=== PATIENT | male | born 1950 | race Caucasian/White ===

== ENCOUNTER 2017-07-12 11:56 | Inpatient (IN) ==
--- OUTSIDE RECORDS SUMMARY | 2017-07-12 12:13 | External Medical Summary | Summary of Care ---
:1950 Author Name Enzo Law M.D. Address [address] [place], [place] [id number] Care Team Providers Name Role Phone Enzo Law M.D. Unavailable Unavailable Nestor Law Unavailable Functional Status Functional Status Health Issues Name Dates Details Functional status health issues are not documented Status: Cognitive Status Health Issues Name Dates Details Cognitive status health issues are not documented Status: Problems Name Dates Details Bipolar I disorder, single manic episode (296.00, F30.9) Status: Active Medications Name Dates Details Medication not documented Allergies and Adverse Reactions Name Dates Details Penicillins (Allergy) Status: Active Sulfa Drugs (Allergy) Status: Active Procedures Procedure Dates Details CBC w/ Auto Diff 7150 Ordered: Comprehensive Metabolic Panel 1212 Ordered: LIPID PROFILE 1184 Ordered: THYROID STIM. HORMONE 3602 Ordered: FOLATE 3608 Ordered: VITAMIN B12 3606 Ordered: Immunization Name Dates Details Immunizations not documented Social History Smoking Status Name Dates Details Unknown if ever smoked Vital Signs Date Test Result Details 09:23 BP Systolic 112 mm[Hg] Status: Comments: Location: ; Position: BP Diastolic 72 mm[Hg] Status: Comments: Location: ; Position: Heart Rate 73 /min Status: Comments: Location: ; Height 68 in Status: Weight 176 lb Status: Physical Findings 98 Status: Comments: O2 Saturation Body Mass Index Calculated 26.76 kg/m2 Status: Body Surface Area Calculated 1.94 m2 Status: Results Date Description Value Details Results not documented Plan of Care Name Dates Details Planned Observations CBC w/ Auto Diff 7150 On Intent Comprehensive Metabolic Panel 1212 On Intent LIPID PROFILE 1184 On Intent THYROID STIM. HORMONE 3602 On Intent FOLATE 3608 On Intent VITAMIN B12 3606 On Intent Planned Goals not documented Planned Encounters Appointment; Provider: Nestor Law M.D. On 10:00 Instructions Name Dates Details Instructions not documented Encounters Appointment; Nestor Law M.D. On Encounter Diagnosis: Problem not documented 09:30
--- NOTE | 2017-07-12 12:33 | Emergency Department Report ---
Medical Clearance HPI - General Chief complaint: Medical Clearance Stated complaint: [facility] Time Seen by Provider: 07/12/17 12:08 Source: patient Mode of arrival: ambulatory Limitations: no limitations - History of Present Illness HPI Narrative: He presents to ER today for medical clearance. He has been having trouble with paranoia and had tried to elope. He comes from a fdc in [place]. Has had some changes in his medications recently but they were not seeing good response. He is alert and oriented during exam to person, place, and time but does smile and laugh at nothing and states that he is laughing about a memory that he has had. complaint: medical clearance requested Reason for Medical Clearance: psychiatric condition Place: home Alleged Intoxication: No Compliant with Home Medications: Yes Traumatic Symptoms: denies traumatic injury Associated Symptoms: confusion Treatments Prior to Arrival: none Home medications: Home Medications Medication Instructions Recorded Confirmed Acetaminophen 650 mg PO Q4H PRN 07/12/17 07/12/17 Guaifenesin [Mucinex] 200 mg PO TID PRN 07/12/17 07/12/17 Haloperidol [Haldol] 0.5 mg PO DAILY PRN 07/12/17 07/12/17 LORazepam [Ativan] 0.5 mg PO Q4H PRN 07/12/17 07/12/17 Mag Hydrox/Aluminum Hyd/Simeth 15 ml PO Q6H PRN 07/12/17 07/12/17 [Maalox Advanced Suspension] Magnesium Hydroxide [Milk of 30 ml PO DAILY PRN 07/12/17 07/12/17 Magnesia] OLANZapine [Zyprexa] 5 mg PO HS 07/12/17 07/12/17 OXcarbazepine [Trileptal] 150 mg PO BID 07/12/17 07/12/17 Pramipexole [Mirapex] 1 mg PO TID 07/12/17 07/12/17 Allergies/Adverse reactions: Allergies Allergy/AdvReac Type Severity Reaction Status Date / Time Penicillins Allergy Verified 07/12/17 12:26 Sulfa (Sulfonamide Allergy Verified 07/12/17 12:26 Antibiotics) Review of Systems Constitutional: Denies: fever, chills, weakness ENT: Denies: ear pain, throat pain, congestion Cardiovascular: Denies: chest pain, palpitations, dyspnea on exertion, edema Respiratory: Denies: cough, dyspnea, wheezes Gastrointestinal: Denies: abdominal pain, nausea, vomiting, diarrhea Integumentary: Denies: rash Neurological: Denies: headache, weakness, numbness, paresthesias PFSH Patient Stated Medical History Parkinson's Disease Yes Hypertension Yes Other GI Yes: "gallbladder problems" Bipolar Disorder Yes Schizophrenia Yes: schizo-affective Other Behavioral Health Yes: major neuro-cognitive disorder with behavioral disturbance Bipolar Disorder Schizoaffective disorder major neuro-cognitive disorder with behavioral disturbance HTN edema - Social History Smoking status: Never smoker Substance use type: does not use Alcohol intake frequency: does not drink Physical Exam - Limitations Limitations: no limitations - General General appearance: alert, in no apparent distress - Normal Exams: Neck:: Full range of motion, without adenopathy, JVD, bruits or thyromegaly Chest/Respirations:: Clear all renee, with good airflow, and symmetry bilaterally Cardiovascular:: Regular rate and rhythm, without murmur or gallop, Pulses 2+ all extremities, capillary refill, <2 seconds all extremities Abdomen:: Bowel sounds positive, soft, non-tender, non-distended, no hepatosplenomegaly, masses or bruits noted Lymphatic:: No lymphadenopathy, or lymphedema noted Integumentary:: No rashes, hives, or bruising noted Neurological:: Patient is alert, and oriented Psychiatric:: Patient exhibits, appropriate attention, emotion and affect Course Vital Signs Temperature 97.1 F 07/12/17 12:07 Pulse Rate 82 07/12/17 12:07 Respiratory Rate 16 07/12/17 12:07 Blood Pressure 160/78 H 07/12/17 12:07 Pulse Oximetry 96 07/12/17 12:07 Temperature 98.0 F 07/12/17 15:02 Pulse Rate 81 07/12/17 15:02 Respiratory Rate 18 07/12/17 15:02 Blood Pressure 159/98 H 07/12/17 15:02 Pulse Oximetry 97 07/12/17 15:02 Medical Clearance - Lab Data Attestation: I reviewed the patient's lab results. Result diagrams: 07/12/17 12:43 07/12/17 12:43 Lab Results 07/12/17 07/12/17 07/12/17 Range/Units 12:43 12:43 13:21 WBC 9.7 (4.5-11.0) T/MM3 RBC 5.38 (4.50-5.90) M/MM3 Hgb 15.6 (13.5-17.5) GM/DL Hct 46.3 (41-53) % MCV 86.1 (80-100) UM3 MCH 29.0 (26-34) UUG MCHC 33.7 (31-37) GM/DL RDW Std Deviation 44.7 (36.9-50.2) FL Plt Count 269 (130-400) T/MM3 MPV 9.4 (9.4-12.4) UM3 Immature Gran % (Auto) 0.2 (0.0-0.5) % Neut % (Auto) 69.2 H (33-66) % Lymph % (Auto) 22.9 L (23-45) % Rhea % (Auto) 5.5 (0-9.0) % Eos % (Auto) 1.7 (0-4) % Baso % (Auto) 0.5 (0-2) % Neut # (Auto) 6.7 (1.8-7.7) T/MM3 Lymph # (Auto) 2.2 (1-4.8) T/MM3 Rhea # (Auto) 0.5 (0-0.8) T/MM3 Eos # (Auto) 0.2 (0-0.5) T/MM3 Baso # (Auto) 0.1 (0-0.2) T/MM3 Abs Immat Gran (auto) 0.02 (0.00-0.03) T/MM3 Turbidity < 20 (0-20) Sodium 143 (134-144) MEQ/L Potassium 4.3 (3.6-5) MEQ/L Chloride 110 H (98-107) MEQ/L Carbon Dioxide 23 (22-30) MEQ/L Anion Gap 10 (5-15) MEQ/L BUN 17.0 (9-20) MG/DL Creatinine 1.0 (0.8-1.5) MG/DL GFR Calculation 74 BUN/Creatinine Ratio 17 (6-26) RATIO Glucose 98 (75-110) MG/DL Calculated Osmolality 277 (261-280) MOSM/KG Calcium 9.6 (8.4-10.2) MG/DL Total Bilirubin 0.20 (0.20-1.30) MG/DL Icterus Index < 2 (0-7) AST 19 (17-59) U/L ALT 28 (21-72) U/L Alkaline Phosphatase 78 (38-126) U/L Total Protein 7.3 (6.3-8.2) G/DL Albumin 4.3 (3.5-5.0) G/DL Globulin 3.0 (2.4-3.6) G/DL Albumin/Globulin Ratio 1.4 (1.1-2.2) RATIO Specimen Hemolysis < 15 (0-25) Ur Collection Type Urine, clean catch Urine Color Yellow (YELLOW) Urine Clarity Clear Urine pH 6.5 (5.0-8.0) Ur Specific [place] 1.015 (1.015-1.025) Urine Protein Negative (NEGATIVE) Urine Glucose (UA) Negative (NEGATIVE) Urine Ketones Negative (NEGATIVE) Urine Occult Blood Negative (NEGATIVE) Urine Nitrate Negative (NEGATIVE) Urine Bilirubin Negative (NEGATIVE) Urine Urobilinogen 0.2 (NORMAL) EU/DL Ur Leukocyte Esterase Negative (NEGATIVE) Urinalysis Comment Microscopic not ind. - Radiology Data Attestation: I reviewed the patient's radiology results. Date of Exam: 07/12/17 Ordering Provider: Flores Hannon APRN Type of Exam(s): XR chest 1V Reason for Exam(s): medical clearance Indication: medical clearance PROCEDURE: XR chest 1V: Encounter: Initial Comparison: None FINDINGS: The lungs are clear. There is no abnormal airspace opacity, pleural effusion or pneumothorax identified. The heart size, pulmonary vasculature and mediastinum are within normal limits. IMPRESSION: No acute cardiopulmonary abnormality. . Disposition Clinical Impression: Paranoia Disposition: 63 To [facility] Condition: Stable Time of Disposition: 13:31 - Seen By: midlevel
--- NOTE | 2017-07-12 12:42 | XRay Report ---
Indication: medical clearance PROCEDURE: XR chest 1V: Encounter: Initial Comparison: None FINDINGS: The lungs are clear. There is no abnormal airspace opacity, pleural effusion or pneumothorax identified. The heart size, pulmonary vasculature and mediastinum are within normal limits. IMPRESSION: No acute cardiopulmonary abnormality. .
[2017-07-12] MEDS ORDERED: HALOPERIDOL 5 MG/ML INJECTION IM PRN (14:43)
[2017-07-12] MEDS ORDERED: GUAIFENESIN 200MG TABLET PO PRN (14:43)
[2017-07-12] MEDS ORDERED: ACETAMINOPHEN 325 MG TABLET PO PRN (14:43)
[2017-07-12] MEDS ORDERED: HALOPERIDOL 0.5 MG TABLET PO PRN (14:43)
[2017-07-12] MEDS ORDERED: LORazepam 0.5 MG TABLET PO PRN (14:43)
[2017-07-12] MEDS ORDERED: MAG-AL + SIM ORAL LIQUID 30ml PO PRN (14:43)
--- NOTE | 2017-07-12 15:10 | History & Physical Report ---
History of Present Illness Date: 07/12/17 Chief complaint: paranoia and increasing elopement tendencies HPI: Patient is a 67 yo male who [facility] following clearance through the ED for increasing paranoia and elopement attempts. Patient reports he is unsure why he is here. He tells me he moved to [place] from [place] in October of 2013. States it is a "long story" as to why he moved to [place] but that he needed to get out of [place]. He denies having any family here. He reports he does have roommate in his half-way in [place]. He is oriented to person, place and time. He is unable to remember who his PCP is, but is able to tell me he has seen Dr. Pop for possible Parkinson's diagnosis. History was taken from patient and ER note. At time of documentation, I have no notes from patient's primary care provider and no family is present. Review of Systems Review of systems: some trouble with "harder breathing over the past few months." Past Medical History Parkinson's HTN Bipolar Disorder Schizoaffective disorder Neuro-cognitive disorder Surgical History: Patient denies h/o any surgeries other than skin biopsies. Reports he had a melanoma removed from the L leg. Family History: Noncontributory Family History Updates: . 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 Nestor Harris Neuro - Dr. Pop Pt reports he is not has no children that he "is aware of." Medications Home Medications Medication Instructions Recorded Confirmed Type Acetaminophen 650 mg PO Q4H PRN 07/12/17 07/12/17 History Guaifenesin [Mucinex] 200 mg PO TID PRN 07/12/17 07/12/17 History Haloperidol [Haldol] 0.5 mg PO DAILY PRN 07/12/17 07/12/17 History LORazepam [Ativan] 0.5 mg PO Q4H PRN 07/12/17 07/12/17 History Mag Hydrox/Aluminum Hyd/Simeth 15 ml PO Q6H PRN 07/12/17 07/12/17 History [Maalox Advanced Suspension] Magnesium Hydroxide [Milk of 30 ml PO DAILY PRN 07/12/17 07/12/17 History Magnesia] OLANZapine [Zyprexa] 5 mg PO HS 07/12/17 07/12/17 History OXcarbazepine [Trileptal] 150 mg PO BID 07/12/17 07/12/17 History Pramipexole [Mirapex] 1 mg PO TID 07/12/17 07/12/17 History Allergies Allergy/AdvReac Type Severity Reaction Status Date / Time Penicillins Allergy Verified 07/12/17 12:26 Sulfa (Sulfonamide Allergy Verified 07/12/17 12:26 Antibiotics) Exam Vital Signs: Temperature 97.1 F 07/12/17 12:07 Pulse Rate 56 L 07/12/17 12:57 Respiratory Rate 16 07/12/17 12:57 Blood Pressure 163/79 H 07/12/17 12:57 Pulse Oximetry 97 07/12/17 12:57 - Constitutional Present: no acute distress, well nourished, well developed - Routine HEENT Exam Head: Present: normocephalic, atraumatic Eye: Present: EOMI ENT: Present: mucous membranes moist, oropharynx clear, dentition normal - Routine Neck Exam Present: supple. Absent: lymphadenopathy, thyromegaly - Routine Respiratory Exam Present: CTA bilaterally. Absent: wheezes - Routine Cardiovascular Exam Present: RRR. Absent: murmur - Routine Abdominal Exam Present: soft, normoactive bowel sounds, non distended. Absent: tenderness - Routine Extremities Exam Present: normal capillary refill - Routine Skin Exam Present: dry, warm - Routine Neurological Exam Present: alert, oriented X3, moving all extremities, normal tone, normal speech , tremors (very minimal - intentional). Absent: pronator drift, abnormal gait CN III-XII intact - Routine Psychiatric Exam Present: normal affect, cooperative Results - Labs CBC & Chem 7: 07/12/17 12:43 07/12/17 12:43 - Imaging and Cardiology Chest x-ray Additional comments: Date of Exam: 07/12/17 Indication: medical clearance PROCEDURE: XR chest 1V: FINDINGS: The lungs are clear. There is no abnormal airspace opacity, pleural effusion or pneumothorax identified. The heart size, pulmonary vasculature and mediastinum are within normal limits. IMPRESSION: No acute cardiopulmonary abnormality. Assessment and Plan (1) Paranoia Current visit: Yes Status: Acute Assessment and Plan: Assessment: Neuro-cognitive disorder with paranoia and elopement attempts Parkinson's HTN Bipolar Disorder Schizoaffective disorder Plan: Agree with [facility] admission for psychiatric eval and tx and to provide a safe environment. Patient appears medically stable. BP's are slightly elevated, will follow. We will continue to follow patient medically throughout his stay. Thank you for the consult. Care to return to Dr. Harris on dismissal. - Physician Narrative Physician: Dionna Cao MD Narrative: Date: 07/12/17 Time: 1809 I have independently evaluated and examined this patient. I reviewed the chart, the patient's history, and the SUPERINTENDENT LOCAL/PA's documented findings as above. 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 He denied any particular concerns when I spoke with him indicating only that he has occasional tremors in his arms due to Parkinson's disease, panting respirations unrelated to exercise, and gallbladder attacks with the most recent episode 3 or 4 days ago. Comprehensive review of systems was generally negative although occasionally if the patient would note that he had a single episode of something (for example one episode of chest pain) 4 or 5 years ago. PCP-Dr. Thanh FELDMAN, alert, fluent speech Respirations nonlabored, good airflow Regular rhythm, S1-S2 EOMI, tongue midline, facial structure symmetric Sensation intact to light touch 4 extremities No tremor time of my evaluation however he does have cogwheeling at the right wrist but none at the left; generalized motor tone was normal as was power Screening labs/UA unremarkable. Lipid studies/B-12/TSH pending. Chest x-ray reviewed by myself-NAD EKG also reviewed by myself-sinus rhythm, LAD, very small Q waves in lateral leads-cannot exclude past lateral event Medically stable although blood pressure slightly elevated at time of admission. Will monitor and make recommendations if persistent. Thank you for allowing us to participate in this gentleman's care. Hospital Course Summary Disclaimer: The visit summary below is not to be considered part of the above Progress Note.
[2017-07-12 15:45] VITALS: BMI 27.6
[2017-07-12] MEDS: PRAMIPEXOLE 1 MG TABLET PO SCH ×3 (17:07→21:41)
[2017-07-12] MEDS: OLANZapine 5 MG TABLET PO SCH ×3 (19:40→21:47)
[2017-07-12] MEDS: OXCARBAZEPINE 150 MG TABLET PO SCH (21:40)
[2017-07-13] MEDS ORDERED: LORazepam INTENSOL 1mg/0.5ml ORAL LIQUID SL PRN (08:10)
[2017-07-13] MEDS: OXCARBAZEPINE 150 MG TABLET PO SCH ×2 (08:13→20:03)
[2017-07-13] MEDS: PRAMIPEXOLE 1 MG TABLET PO SCH ×3 (08:15→17:01)
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
[2017-07-13] MEDS: OLANZapine 5 MG TABLET PO SCH (20:02)
[2017-07-14] MEDS: OXCARBAZEPINE 150 MG TABLET PO SCH (08:57)
[2017-07-14] MEDS: PRAMIPEXOLE 1 MG TABLET PO SCH ×3 (08:57→18:05)
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
[2017-07-14] MEDS ORDERED: HALOPERIDOL 5 MG/ML INJECTION IM PRN (15:06)
[2017-07-14] MEDS: OLANZapine 5 MG TABLET PO SCH (20:10)
[2017-07-15] MEDS: PRAMIPEXOLE 1 MG TABLET PO SCH ×2 (09:46→17:17)
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
[2017-07-15] MEDS: OLANZapine 5 MG TABLET PO SCH ×2 (19:38→21:26)
[2017-07-16] MEDS: PRAMIPEXOLE 1 MG TABLET PO SCH ×2 (08:12→17:03)
--- NOTE | 2017-07-16 10:46 | Neuropsych Progress Note ---
[facility] Subjective Date: 07/16/17 - Sujective/Severity of Illness Medications: Acetaminophen (Tylenol) 650 mg PO Q4H PRN PRN Reason: Pain Al Hydroxide/Mg Hydroxide (Maalox Plus) 15 ml PO Q6H PRN PRN Reason: PRN orders Guaifenesin (Mucinex) 200 mg PO TID PRN PRN Reason: Cough /Congestion Last Admin: 07/14/17 01:55 Dose: 200 mg Haloperidol (Haldol) 0.5 mg PO Q6H PRN PRN Reason: Extreme agitation Haloperidol Lactate (Haldol) 0.5 mg IM Q6H PRN PRN Reason: Extreme agitation Haloperidol Lactate (Haldol) 1 mg IM DAILY PRN PRN Reason: See comments below Last Admin: 07/14/17 19:44 Dose: 1 mg Lorazepam (Ativan) 0.5 mg PO Q6H PRN PRN Reason: Extreme agitation Lorazepam (Ativan Inj) 0.5 mg IM Q6H PRN PRN Reason: Extreme agitation Lorazepam (Ativan Intensol) 0.5 mg SL Q6H PRN PRN Reason: alternative route Last Admin: 07/13/17 08:13 Dose: 0.5 mg Magnesium Hydroxide (Mom) 30 ml PO DAILY PRN PRN Reason: Constipation Subjective: Pt seen and chart examined. Nursing reports pt slept 4.25 hours. He is alert and oriented x 3 but is delusional and sexually inappropriate at times. On face to face the pt is paranoid and delusional. He states he did take the Zyprexa last night and is willing to take it even though he does not want to. he reports his mood is stable and he denies any S/I. Start Time: 09:15 Stop Time: 09:30 Mental Status Exam Vitals: Last Vital Signs Temp 97.7 F 07/16/17 08:00 Pulse 101 H 07/16/17 08:00 Resp 16 07/16/17 08:00 BP 168/90 H 07/16/17 08:00 Pulse Ox 96 07/16/17 08:00 Height: 1.73 m Weight: 82.4 kg - Mental Status Exam Muscle Strength/Tone: Normal Dressing: Casual Grooming: Fair Attitude: Uncooperative, Suspicious Motor Activity: Normal Eye Contact: Poor Speech: Normal Volume: Normal Rhythm: Appropriate Rhythm Orientation: Disoriented to situation, Oriented to person, Oriented to place, Oriented to time Mood: Irritable (mild) Rate of Thoughts: Delayed Thought Organization: Blocking, [place] Associations: Illogical Abstract Reasoning: Impaired, concrete Thought Content: Paranoia, Grandeur, Hypersexual Perception/Psychotic: Psychotic Current Hallucinations: Auditory (non-command) Language: Naming Intact Fund of Knowledge: Other (decreased from baseline, SLUMS upon admission) Memory: Poor-recent Suicidal Ideation: Denies Homicidal Ideation: Denies Insight: Impaired Judgement: Impaired Impulse Control: Poor - Laboratory Result Diagrams: 07/12/17 12:43 07/12/17 12:43 Assessment and Plan (1) Psychosis Qualifiers: Psychosis type: unspecified psychosis type Qualified Code(s): F29 - Unspecified psychosis not due to a substance or known physiological condition Current visit: Yes Status: Acute (2) Major neurocognitive disorder Current visit: Yes Status: Chronic (3) Hypertension Current visit: Yes Status: Acute Hospital Course Summary Disclaimer: The visit summary below is not to be considered part of the above Progress Note. Hospital Course: 07/14/17 Psych: Will discuss the following plan with guardian: Discontinue Trileptal. Plan to taper pramipexole in the event it could be exacerbating psychosis; will decrease to 1mg PO BID for the time being and then 1mg daily the following day. Will also like to restart Zyprexa 5mg PO daily at HS; if patient refuses he will be given Haldol 1mg IM. Will monitor mood, behavior, movement and response to treatment. 07/15/17 Psych: Continue current care; patient received injection in place of scheduled Zyprexa yesterday evening. Seems to be somewhat helpful though still quite symptomatic. Will see if patient will adhere with oral medication tonight. If not, may consider increasing dose of PRN IM Haldol if he refuses. 07/16/17 Pt remains paranoid and sexually inappropriate at times. Will decrease Pramipexole to 0.5mg PO BID and Increase Zyprexa to 10mg PO QHS
[2017-07-16] MEDS: OLANZapine 5 MG TABLET PO SCH (20:00)
[2017-07-17] MEDS: PRAMIPEXOLE 1 MG TABLET PO SCH ×2 (08:16→16:52)
--- NOTE | 2017-07-17 11:59 | Neuropsych Progress Note ---
Louis Subjective Date: 07/17/17 - Sujective/Severity of Illness Medications: Acetaminophen (Tylenol) 650 mg PO Q4H PRN PRN Reason: Pain Al Hydroxide/Mg Hydroxide (Maalox Plus) 15 ml PO Q6H PRN PRN Reason: PRN orders Guaifenesin (Mucinex) 200 mg PO TID PRN PRN Reason: Cough /Congestion Last Admin: 07/14/17 01:55 Dose: 200 mg Haloperidol (Haldol) 0.5 mg PO Q6H PRN PRN Reason: Extreme agitation Haloperidol Lactate (Haldol) 0.5 mg IM Q6H PRN PRN Reason: Extreme agitation Haloperidol Lactate (Haldol) 1 mg IM DAILY PRN PRN Reason: See comments below Last Admin: 07/14/17 19:44 Dose: 1 mg Lisinopril (Prinivil) 5 mg PO DAILY [facility] Lorazepam (Ativan) 0.5 mg PO Q6H PRN PRN Reason: Extreme agitation Lorazepam (Ativan Inj) 0.5 mg IM Q6H PRN PRN Reason: Extreme agitation Lorazepam (Ativan Intensol) 0.5 mg SL Q6H PRN PRN Reason: alternative route Last Admin: 07/13/17 08:13 Dose: 0.5 mg Magnesium Hydroxide (Mom) 30 ml PO DAILY PRN PRN Reason: Constipation Olanzapine (Zyprexa) 10 mg PO HS [facility] Last Admin: 07/16/17 20:00 Dose: 10 mg Pramipexole Dihydrochloride (Mirapex) 0.5 mg PO BIDWM [facility] Last Admin: 07/17/17 08:16 Dose: 0.5 mg Subjective: Pt seen and chart examined. Nursing reports pt doing a little better. Slept well and has a good appetite. No behaviors noted. On face to face the pt is pleasant and cooperative. He remains paranoid and delusional but it appears better. He has a small bruise on his arm which he is convinced is melanoma which is causing him some distress. He reports his mood is stable. Is tolerating and taking PO meds Start Time: 10:45 Stop Time: 11:00 Mental Status Exam Vitals: Last Vital Signs Temp 97.0 F 07/17/17 08:00 Pulse 89 07/17/17 08:00 Resp 18 07/17/17 08:00 BP 159/97 H 07/17/17 08:00 Pulse Ox 97 07/17/17 08:00 Height: 1.73 m Weight: 82.4 kg - Mental Status Exam Muscle Strength/Tone: Normal Dressing: Casual Grooming: Fair Attitude: Uncooperative, Suspicious Motor Activity: Normal Eye Contact: Poor Speech: Normal Volume: Normal Rhythm: Appropriate Rhythm Orientation: Disoriented to situation, Oriented to person, Oriented to place, Oriented to time Mood: Irritable (mild) Rate of Thoughts: Delayed Thought Organization: Blocking, [place] Associations: Illogical Abstract Reasoning: Impaired, concrete Thought Content: Paranoia, [place], Hypersexual Perception/Psychotic: Psychotic Current Hallucinations: Auditory (non-command) Language: Naming Intact Fund of Knowledge: Other (decreased from baseline, SLUMS upon admission) Memory: Poor-recent Suicidal Ideation: Denies Homicidal Ideation: Denies Insight: Impaired Judgement: Impaired Impulse Control: Poor - Laboratory Result Diagrams: 07/12/17 12:43 07/12/17 12:43 Assessment and Plan (1) Psychosis Qualifiers: Psychosis type: unspecified psychosis type Qualified Code(s): F29 - Unspecified psychosis not due to a substance or known physiological condition Current visit: Yes Status: Acute (2) Major neurocognitive disorder Current visit: Yes Status: Chronic (3) Hypertension Current visit: Yes Status: Acute Hospital Course Summary Disclaimer: The visit summary below is not to be considered part of the above Progress Note. Hospital Course: 07/14/17 Psych: Will discuss the following plan with guardian: Discontinue Trileptal. Plan to taper pramipexole in the event it could be exacerbating psychosis; will decrease to 1mg PO BID for the time being and then 1mg daily the following day. Will also like to restart Zyprexa 5mg PO daily at HS; if patient refuses he will be given Haldol 1mg IM. Will monitor mood, behavior, movement and response to treatment. 07/15/17 Psych: Continue current care; patient received injection in place of scheduled Zyprexa yesterday evening. Seems to be somewhat helpful though still quite symptomatic. Will see if patient will adhere with oral medication tonight. If not, may consider increasing dose of PRN IM Haldol if he refuses. 1/6/18 Pt remains paranoid and sexually inappropriate at times. Will decrease Pramipexole to 0.5mg PO BID and Increase Zyprexa to 10mg PO QHS 07/17/17 Paranoid improved. Continue current care
[2017-07-17] MEDS: LISINOPRIL 5 MG TABLET PO SCH (13:12)
[2017-07-17] MEDS: OLANZapine 5 MG TABLET PO SCH (20:11)
[2017-07-18] MEDS: LISINOPRIL 5 MG TABLET PO SCH (08:15)
[2017-07-18] MEDS: PRAMIPEXOLE 1 MG TABLET PO SCH ×2 (08:15→17:56)
--- NOTE | 2017-07-18 14:23 | Neuropsych Progress Note ---
Louis Subjective Date: 07/18/17 - Sujective/Severity of Illness Medications: Acetaminophen (Tylenol) 650 mg PO Q4H PRN PRN Reason: Pain Al Hydroxide/Mg Hydroxide (Maalox Plus) 15 ml PO Q6H PRN PRN Reason: PRN orders Guaifenesin (Mucinex) 200 mg PO TID PRN PRN Reason: Cough /Congestion Last Admin: 07/14/17 01:55 Dose: 200 mg Haloperidol (Haldol) 0.5 mg PO Q6H PRN PRN Reason: Extreme agitation Haloperidol Lactate (Haldol) 0.5 mg IM Q6H PRN PRN Reason: Extreme agitation Haloperidol Lactate (Haldol) 1 mg IM DAILY PRN PRN Reason: See comments below Last Admin: 07/14/17 19:44 Dose: 1 mg Lisinopril (Prinivil) 5 mg PO DAILY [facility] Last Admin: 07/18/17 08:15 Dose: 5 mg Lorazepam (Ativan) 0.5 mg PO Q6H PRN PRN Reason: Extreme agitation Lorazepam (Ativan Inj) 0.5 mg IM Q6H PRN PRN Reason: Extreme agitation Lorazepam (Ativan Intensol) 0.5 mg SL Q6H PRN PRN Reason: alternative route Last Admin: 07/13/17 08:13 Dose: 0.5 mg Magnesium Hydroxide (Mom) 30 ml PO DAILY PRN PRN Reason: Constipation Olanzapine (Zyprexa) 10 mg PO HS [facility] Last Admin: 07/17/17 20:11 Dose: 10 mg Pramipexole Dihydrochloride (Mirapex) 0.5 mg PO BIDWM [facility] Last Admin: 07/18/17 08:15 Dose: 0.5 mg Subjective: Patient seen and chart reviewed. Case discussed with treatment team. Patient states collin this mood is "as stable as possible" but that he feels a little "slow" this morning. When asked why, he states because he hasn't finished a puzzle yet and the SW beat him at a game -- however, he reported he enjoyed playing. SW reported that he did relatively well with this and asked for help when he needed some. He states that he is worried about his finances and has had some thoughts of "suicide by psychiatry." When asked about this, he stated that he could intentionally feign symptoms so I would increase his antipsychotic higher and higher until he . He reported having these thoughts because he is worried about finances and thinks he will probably live another 30 years, which he can't afford. He then said that he did feel safe on the unit. Patient denied any HI. He continues to endorse AH of his niece but now says they are more positive comments, not derogatory or paranoid in nature. He denies any command hallucinations. Nursing staff report some paranoia (decreased from previous) and that patient was concerned last night that a spot on his wrist was cancer. Patient slept only 4 hours, interrupted, last night but the reason for this is not clear as he was previously sleeping better. He was initially hesitant about Zyprexa but took it rather than getting IM medication last night. Hypersexuality present but decreasing. Patient denies any AE due to psychotropic medications today. Movement examined and so parkinsonism apparent. Patient is eating well. VSS. No psychotropic PRNs have been required in the past 24 hours. Start Time: 11:40 Stop Time: 12:00 Mental Status Exam Vitals: Last Vital Signs Temp 97.2 F 07/18/17 08:00 Pulse 92 07/18/17 08:00 Resp 16 07/18/17 08:00 BP 129/90 H 07/18/17 08:00 Pulse Ox 99 07/18/17 08:00 Height: 1.73 m Weight: 82.4 kg - Mental Status Exam Muscle Strength/Tone: Normal Dressing: Casual Grooming: Fair Attitude: Cooperative, Suspicious (mild) Motor Activity: Normal Eye Contact: Poor Speech: Normal Volume: Normal Rhythm: Appropriate Rhythm Orientation: Disoriented to situation, Oriented to person, Oriented to place, Oriented to time Mood: Neutral Affect: Blunted Rate of Thoughts: Delayed Thought Organization: Blocking, [place] Associations: Intact Abstract Reasoning: Impaired, concrete Thought Content: Delusions, Paranoia, Hypersexual, Somatic Concerns Perception/Psychotic: Psychotic Current Hallucinations: Auditory (non-command) Language: Naming Intact Fund of Knowledge: Other (decreased from baseline, SLUMS upon admission) Memory: Poor-recent Suicidal Ideation: Denies Homicidal Ideation: Denies Insight: Impaired Judgement: Impaired Impulse Control: Poor (though improving) - Laboratory Result Diagrams: 07/12/17 12:43 07/18/17 07:04 Laboratory Results - last 24 hr 07/18/17 07:04 Turbidity < 20 Sodium 146 H Potassium 4.4 Chloride 110 H Carbon Dioxide 25 Anion Gap 11 BUN 19.0 Creatinine 1.1 GFR Calculation 66 BUN/Creatinine Ratio 17 Glucose 90 Calculated Osmolality 283 H Calcium 9.9 Icterus Index < 2 Specimen Hemolysis < 15 Assessment and Plan (1) Psychosis Qualifiers: Psychosis type: unspecified psychosis type Qualified Code(s): F29 - Unspecified psychosis not due to a substance or known physiological condition Current visit: Yes Status: Acute Bipolar 1 disorder, severe, MRE manic with psychotic features (2) Major neurocognitive disorder Current visit: Yes Status: Chronic (3) Hypertension Current visit: Yes Status: Acute Continue current care; monitor response to increased Zyprexa. Hospital Course Summary Disclaimer: The visit summary below is not to be considered part of the above Progress Note. Hospital Course: 07/14/17 Psych: Will discuss the following plan with guardian: Discontinue Trileptal. Plan to taper pramipexole in the event it could be exacerbating psychosis; will decrease to 1mg PO BID for the time being and then 1mg daily the following day. Will also like to restart Zyprexa 5mg PO daily at HS; if patient refuses he will be given Haldol 1mg IM. Will monitor mood, behavior, movement and response to treatment. 07/15/17 Psych: Continue current care; patient received injection in place of scheduled Zyprexa yesterday evening. Seems to be somewhat helpful though still quite symptomatic. Will see if patient will adhere with oral medication tonight. If not, may consider increasing dose of PRN IM Haldol if he refuses. 07/16/17 Pt remains paranoid and sexually inappropriate at times. Will decrease Pramipexole to 0.5mg PO BID and Increase Zyprexa to 10mg PO QHS 07/17/17 Paranoia improved. Continue current care. 07/18/17 Psych: Continue current care; monitor response to increased Zyprexa. May need additional medication to target sleep.
--- NOTE | 2017-07-18 17:28 | Progress Note ---
- Date 07/18/17 Subjective: Pat has been jogging up and down the hallway. He's been worried about a spot on his left forearm which he estimates has been there about a week. He denies any chest pain or difficulty breathing. No abdominal pain or GI complaints; his appetite has been stable. Objective Vital signs: Temperature 97.7 F 07/18/17 16:00 Pulse Rate 93 07/18/17 16:00 Respiratory Rate 16 07/18/17 16:00 Blood Pressure 135/79 07/18/17 16:00 Pulse Oximetry 98 07/18/17 16:00 Height/Weight/BMI: Height 1.73 m Weight 82.4 kg Body Mass Index 27.6 - Constitutional Present: no acute distress, well nourished, well developed - Routine HEENT Exam Head: Present: normocephalic Eye: Absent: conjunctival icterus, scleral injection - Routine Respiratory Exam Present: CTA bilaterally - Routine Cardiovascular Exam Present: RRR, S1, S2 - Routine Abdominal Exam Present: soft, normoactive bowel sounds - Routine Extremities Exam Present: no edema, pulses intact - Routine Musculoskeletal Exam Musculoskeletal: Present: moving extremities well - Routine Skin Exam Present: dry, warm, wounds (healing abrasion to left hall), ecchymosis (small 1 cm ecchymotic area to left forearm) - Routine Neurological Exam Present: alert, normal speech - Routine Psychiatric Exam Absent: normal affect, normal thought process Results - Labs CBC & Chem 7: 07/12/17 12:43 07/18/17 07:04 Assessment and Plan (1) Paranoia Current visit: Yes Status: Acute Assessment and Plan: Assessment: Neuro-cognitive disorder with paranoia and elopement attempts Parkinson's HTN Bipolar Disorder Schizoaffective disorder Plan: Labs reviewed - mild hypernatremia; encourage oral fluids. Medically stable. Psych notes reviewed - medications being adjusted. Monitor ecchymotic area to left forearm for changes. - Physician Narrative Narrative: Date: 07/18/17 Time: 172 Hospital Course Summary Disclaimer: The visit summary below is not to be considered part of the above Progress Note. Hospital Course: 07/14/17 Psych: Will discuss the following plan with guardian: Discontinue Trileptal. Plan to taper pramipexole in the event it could be exacerbating psychosis; will decrease to 1mg PO BID for the time being and then 1mg daily the following day. Will also like to restart Zyprexa 5mg PO daily at HS; if patient refuses he will be given Haldol 1mg IM. Will monitor mood, behavior, movement and response to treatment. 07/15/17 Psych: Continue current care; patient received injection in place of scheduled Zyprexa yesterday evening. Seems to be somewhat helpful though still quite symptomatic. Will see if patient will adhere with oral medication tonight. If not, may consider increasing dose of PRN IM Haldol if he refuses. 07/16/17 Pt remains paranoid and sexually inappropriate at times. Will decrease Pramipexole to 0.5mg PO BID and Increase Zyprexa to 10mg PO QHS 07/17/17 Paranoia improved. Continue current care. 07/18/17 Psych: Continue current care; monitor response to increased Zyprexa. May need additional medication to target sleep.
[2017-07-18] MEDS: OLANZapine 5 MG TABLET PO SCH (20:01)
[2017-07-19] MEDS: LISINOPRIL 5 MG TABLET PO SCH (10:27)
[2017-07-19] MEDS: PRAMIPEXOLE 1 MG TABLET PO SCH ×2 (10:27→17:53)
--- NOTE | 2017-07-19 18:20 | Neuropsych Progress Note ---
Louis Subjective Date: 07/20/17 - Sujective/Severity of Illness Medications: Acetaminophen (Tylenol) 650 mg PO Q4H PRN PRN Reason: Pain Al Hydroxide/Mg Hydroxide (Maalox Plus) 15 ml PO Q6H PRN PRN Reason: PRN orders Guaifenesin (Mucinex) 200 mg PO TID PRN PRN Reason: Cough /Congestion Last Admin: 07/14/17 01:55 Dose: 200 mg Haloperidol (Haldol) 0.5 mg PO Q6H PRN PRN Reason: Extreme agitation Haloperidol Lactate (Haldol) 0.5 mg IM Q6H PRN PRN Reason: Extreme agitation Haloperidol Lactate (Haldol) 1 mg IM DAILY PRN PRN Reason: See comments below Last Admin: 07/14/17 19:44 Dose: 1 mg Lisinopril (Prinivil) 5 mg PO DAILY [facility] Last Admin: 07/19/17 10:27 Dose: 5 mg Lorazepam (Ativan) 0.5 mg PO Q6H PRN PRN Reason: Extreme agitation Lorazepam (Ativan Inj) 0.5 mg IM Q6H PRN PRN Reason: Extreme agitation Lorazepam (Ativan Intensol) 0.5 mg SL Q6H PRN PRN Reason: alternative route Last Admin: 07/13/17 08:13 Dose: 0.5 mg Magnesium Hydroxide (Mom) 30 ml PO DAILY PRN PRN Reason: Constipation Olanzapine (Zyprexa) 10 mg PO HS [facility] Last Admin: 07/18/17 20:01 Dose: 10 mg Pramipexole Dihydrochloride (Mirapex) 0.5 mg PO BIDWM [facility] Last Admin: 07/19/17 17:53 Dose: 0.5 mg Subjective: Patient seen and chart reviewed. Case discussed with treatment team. Patient states that his mood is "unhappy" and "a little bit angry" because no one has given him any information about his finances. He states that he feels his guardian may be trying to intentionally harm him financially because she won 't report his information and she has cancelled 4 credit cards. He carries this anger over to this female physician and the female SW "because women always just investigate and never get anything done." Patient denies any SI today. When asked about HI, he speaks of his annoyance with a new male peer (who is really quite pleasant but I believe Rajesh is jealous of another man having experience). He continues to endorse AH of his niece but now says they are more positive comments, not derogatory or paranoid in nature. He denies any command hallucinations. Nursing staff report continued somatic delusions and that patient was observed spitting his medication back into his cup. It is unclear how long he has been doing this. Patient slept 5.75 hours last night. Patient is eating well. VSS. No psychotropic PRNs have been required in the past 24 hours. Start Time: 10:00 Stop Time: 10:20 Mental Status Exam Vitals: Last Vital Signs Temp 97.8 F 07/19/17 15:41 Pulse 81 07/19/17 15:41 Resp 18 07/19/17 15:41 BP 123/65 07/19/17 15:41 Pulse Ox 98 07/19/17 15:41 Height: 1.73 m Weight: 83.2 kg - Mental Status Exam Muscle Strength/Tone: Normal Dressing: Casual Grooming: Fair Attitude: Uncooperative, Suspicious (mild), Argumentative Motor Activity: Normal Eye Contact: Poor Speech: Normal Volume: Normal Rhythm: Appropriate Rhythm Sensory: Alert Orientation: Disoriented to situation, Oriented to person, Oriented to place, Oriented to time Mood: Irritable Affect: Hostile Rate of Thoughts: Delayed Thought Organization: Blocking, [place] Associations: Intact Abstract Reasoning: Impaired, concrete Thought Content: Delusions, Paranoia, Hypersexual, Somatic Concerns Perception/Psychotic: Psychotic Current Hallucinations: Auditory (non-command) Language: Naming Intact Fund of Knowledge: Other (decreased from baseline, SLUMS upon admission) Memory: Poor-recent Suicidal Ideation: Denies Homicidal Ideation: Other (Is easily annoyed with male peer but denies any plans to harm him) Insight: Impaired Judgement: Impaired Impulse Control: Poor (though improving) - Laboratory Result Diagrams: 07/12/17 12:43 07/20/17 07:24 Assessment and Plan (1) Psychosis Qualifiers: Psychosis type: unspecified psychosis type Qualified Code(s): F29 - Unspecified psychosis not due to a substance or known physiological condition Current visit: Yes Status: Acute (2) Major neurocognitive disorder Current visit: Yes Status: Chronic (3) Hypertension Current visit: Yes Status: Acute Have requested nursing to do mouth checks to ensure adherence with Zyprexa. Need to watch closely as patient has attempted to hide multiple items (a butter knife, manicure set) and quite irritable with peers. Hospital Course Summary Disclaimer: The visit summary below is not to be considered part of the above Progress Note. Hospital Course: 07/14/17 Psych: Will discuss the following plan with guardian: Discontinue Trileptal. Plan to taper pramipexole in the event it could be exacerbating psychosis; will decrease to 1mg PO BID for the time being and then 1mg daily the following day. Will also like to restart Zyprexa 5mg PO daily at HS; if patient refuses he will be given Haldol 1mg IM. Will monitor mood, behavior, movement and response to treatment. 07/15/17 Psych: Continue current care; patient received injection in place of scheduled Zyprexa yesterday evening. Seems to be somewhat helpful though still quite symptomatic. Will see if patient will adhere with oral medication tonight. If not, may consider increasing dose of PRN IM Haldol if he refuses. 07/16/17 Pt remains paranoid and sexually inappropriate at times. Will decrease Pramipexole to 0.5mg PO BID and Increase Zyprexa to 10mg PO QHS 07/17/17 Paranoia improved. Continue current care. 07/18/17 Psych: Continue current care; monitor response to increased Zyprexa. May need additional medication to target sleep. 07/19/17 Psych: Have requested nursing to do mouth checks to ensure adherence with Zyprexa. Need to watch closely as patient has attempted to hide multiple items (a butter knife, manicure set) and quite irritable with peers.
[2017-07-19] MEDS: OLANZapine 5 MG TABLET PO SCH (20:27)
[2017-07-19] MEDS: PRAMIPEXOLE 0.25 MG TABLET PO SCH (20:28)
[2017-07-20] MEDS: PRAMIPEXOLE 0.25 MG TABLET PO SCH ×2 (08:16→17:31)
[2017-07-20] MEDS: LISINOPRIL 5 MG TABLET PO SCH (08:16)
[2017-07-20] MEDS ORDERED: HALOPERIDOL 5 MG/ML INJECTION IM PRN (16:30)
[2017-07-20] MEDS: OLANZapine ODT 5 MG TABLET PO SCH (20:41)
--- NOTE | 2017-07-20 21:18 | Neuropsych Progress Note ---
[place] Subjective Date: 07/20/17 - Sujective/Severity of Illness Medications: Acetaminophen (Tylenol) 650 mg PO Q4H PRN PRN Reason: Pain Al Hydroxide/Mg Hydroxide (Maalox Plus) 15 ml PO Q6H PRN PRN Reason: PRN orders Guaifenesin (Mucinex) 200 mg PO TID PRN PRN Reason: Cough /Congestion Last Admin: 07/14/17 01:55 Dose: 200 mg Haloperidol (Haldol) 0.5 mg PO Q6H PRN PRN Reason: Extreme agitation Haloperidol Lactate (Haldol) 0.5 mg IM Q6H PRN PRN Reason: Extreme agitation Haloperidol Lactate (Haldol) 2 mg IM BID PRN PRN Reason: See comments below Lisinopril (Prinivil) 5 mg PO DAILY [facility] Last Admin: 07/20/17 08:16 Dose: 5 mg Lorazepam (Ativan) 0.5 mg PO Q6H PRN PRN Reason: Extreme agitation Lorazepam (Ativan Inj) 0.5 mg IM Q6H PRN PRN Reason: Extreme agitation Lorazepam (Ativan Intensol) 0.5 mg SL Q6H PRN PRN Reason: alternative route Last Admin: 07/13/17 08:13 Dose: 0.5 mg Magnesium Hydroxide (Mom) 30 ml PO DAILY PRN PRN Reason: Constipation Olanzapine (Zyprexa Zydis) 5 mg PO BID [facility] Last Admin: 07/20/17 20:41 Dose: 5 mg Pramipexole Dihydrochloride (Mirapex) 0.25 mg PO BIDWM [facility] Last Admin: 07/20/17 17:31 Dose: 0.25 mg Subjective: Patient seen and chart reviewed. Case discussed with treatment team. On interview, patient laughs inappropriately and easily admits to me that he has in fact been hiding/cheeking/etc. his medication. He says he is quite proud of this. He complains of "every drug from the FDA" causing him some constipation and being dizzy as well, which he relates to Zyprexa - though he didn't take it last night and likely was cheeking medication prior to this as well. Discussed dosing with him and he states he prefers it BID and only 2.5mg each time. Patient says he is still considering "suicide by psychiatrist" where he keeps telling me his symptoms are so bad that I increase his meds to the point it kills him. Reassured him that I would not participate in that plan. Patient denies any HI today. Nursing staff report patient can be irritable, labile, laugh inappropriately, suspicious, etc. Has asked SW for a HIV test because he believes we are poisoning him. He states he has only been sexually active on 2 occasions in his life and this was years ago, so he is not concerned about lyn it that way. Patient slept 8.5 hours overnight. VSS. Patient is eating well. Psychotropic PRNs required in the past 24 hours: none. Start Time: 10:00 Stop Time: 10:20 Mental Status Exam Vitals: Last Vital Signs Temp 97.0 F 07/20/17 20:31 Pulse 72 07/20/17 20:31 Resp 20 07/20/17 20:31 BP 144/79 H 07/20/17 20:31 Pulse Ox 96 07/20/17 20:31 Height: 1.73 m Weight: 83.2 kg - Mental Status Exam Muscle Strength/Tone: Normal Dressing: Casual Grooming: Fair Attitude: Uncooperative, Suspicious (mild), Argumentative Motor Activity: Normal Eye Contact: Poor Speech: Normal Volume: Normal Rhythm: Appropriate Rhythm Sensory: Alert Orientation: Disoriented to situation, Oriented to person, Oriented to place, Oriented to time Mood: Other ("constipated" - inappropriate/bizarre, labile affect) Rate of Thoughts: Delayed Thought Organization: Blocking, [place] Associations: Intact Abstract Reasoning: Impaired, concrete Thought Content: Delusions, Paranoia, Hypersexual, Somatic Concerns Perception/Psychotic: Psychotic Current Hallucinations: Auditory (non-command) Language: Naming Intact Fund of Knowledge: Other (decreased from baseline, SLUMS upon admission) Memory: Poor-recent Suicidal Ideation: Denies Homicidal Ideation: Other (Is easily annoyed with male peer but denies any plans to harm him) Insight: Impaired Judgement: Impaired Impulse Control: Poor (though improving) - Laboratory Result Diagrams: 07/12/17 12:43 07/20/17 07:24 Laboratory Results - last 24 hr 07/20/17 07:24 Turbidity < 20 Sodium 143 Potassium 4.5 Chloride 112 H Carbon Dioxide 22 Anion Gap 9 BUN 20.0 Creatinine 1.0 GFR Calculation 74 BUN/Creatinine Ratio 20 Glucose 90 Calculated Osmolality 278 Calcium 9.5 Icterus Index < 2 Specimen Hemolysis < 15 Assessment and Plan (1) Psychosis Qualifiers: Psychosis type: unspecified psychosis type Qualified Code(s): F29 - Unspecified psychosis not due to a substance or known physiological condition Current visit: Yes Status: Acute (2) Major neurocognitive disorder Current visit: Yes Status: Chronic (3) Hypertension Current visit: Yes Status: Acute Reinforced need to watch patient closely when it comes to medication adherence as well as taking objects into room. Plan to search his room to ensure nothing dangerous in there. If this continues, will only allow patient to wear hospital gown. If there is questions as to med adherence with Zyprexa, nursing staff to give IM Haldol or call me for further instruction. Hospital Course Summary Disclaimer: The visit summary below is not to be considered part of the above Progress Note. Hospital Course: 07/14/17 Psych: Will discuss the following plan with guardian: Discontinue Trileptal. Plan to taper pramipexole in the event it could be exacerbating psychosis; will decrease to 1mg PO BID for the time being and then 1mg daily the following day. Will also like to restart Zyprexa 5mg PO daily at HS; if patient refuses he will be given Haldol 1mg IM. Will monitor mood, behavior, movement and response to treatment. 07/15/17 Psych: Continue current care; patient received injection in place of scheduled Zyprexa yesterday evening. Seems to be somewhat helpful though still quite symptomatic. Will see if patient will adhere with oral medication tonight. If not, may consider increasing dose of PRN IM Haldol if he refuses. 07/16/17 Pt remains paranoid and sexually inappropriate at times. Will decrease Pramipexole to 0.5mg PO BID and Increase Zyprexa to 10mg PO QHS 07/17/17 Paranoia improved. Continue current care. 07/18/17 Psych: Continue current care; monitor response to increased Zyprexa. May need additional medication to target sleep. Have decreased pramipexole to 0.25mg PO BID. 07/19/17 Psych: Have requested nursing to do mouth checks to ensure adherence with Zyprexa. Need to watch closely as patient has attempted to hide multiple items (a butter knife, manicure set) and quite irritable with peers. 07/20/17 Psych: Reinforced need to watch patient closely when it comes to medication adherence as well as taking objects into room. Plan to search his room to ensure nothing dangerous in there. If this continues, will only allow patient to wear hospital gown. If there is questions as to med adherence with Zyprexa, nursing staff to give IM Haldol or call me for further instruction. Will decrease pramipexole to once daily and then plan to discontinue.
[2017-07-21] MEDS: PRAMIPEXOLE 0.25 MG TABLET PO SCH (08:20)
[2017-07-21] MEDS: LISINOPRIL 5 MG TABLET PO SCH (08:20)
[2017-07-21] MEDS: OLANZapine ODT 5 MG TABLET PO SCH ×2 (08:21→20:00)
--- NOTE | 2017-07-21 18:50 | Neuropsych Progress Note ---
[place] Subjective Date: 07/21/17 - Sujective/Severity of Illness Medications: Acetaminophen (Tylenol) 650 mg PO Q4H PRN PRN Reason: Pain Al Hydroxide/Mg Hydroxide (Maalox Plus) 15 ml PO Q6H PRN PRN Reason: PRN orders Guaifenesin (Mucinex) 200 mg PO TID PRN PRN Reason: Cough /Congestion Last Admin: 07/14/17 01:55 Dose: 200 mg Haloperidol (Haldol) 0.5 mg PO Q6H PRN PRN Reason: Extreme agitation Haloperidol Lactate (Haldol) 0.5 mg IM Q6H PRN PRN Reason: Extreme agitation Haloperidol Lactate (Haldol) 2 mg IM BID PRN PRN Reason: See comments below Lisinopril (Prinivil) 5 mg PO DAILY [facility] Last Admin: 07/21/17 08:20 Dose: 5 mg Lorazepam (Ativan) 0.5 mg PO Q6H PRN PRN Reason: Extreme agitation Lorazepam (Ativan Inj) 0.5 mg IM Q6H PRN PRN Reason: Extreme agitation Lorazepam (Ativan Intensol) 0.5 mg SL Q6H PRN PRN Reason: alternative route Last Admin: 07/13/17 08:13 Dose: 0.5 mg Magnesium Hydroxide (Mom) 30 ml PO DAILY PRN PRN Reason: Constipation Olanzapine (Zyprexa Zydis) 5 mg PO BID [facility] Last Admin: 07/21/17 08:21 Dose: 5 mg Pramipexole Dihydrochloride (Mirapex) 0.25 mg PO WB [facility] Last Admin: 07/21/17 08:20 Dose: 0.25 mg Subjective: Patient seen and chart reviewed. Case discussed with treatment team. On interview, patient continues to focus on side effects (constipation, dizziness) from his medications though he states these are due to "every drug the FDA evaluates," not just specific to Zyprexa. He very much tries to dictate the dose of his medications but has a brighter affect overall. I am able to joke with him somewhat and he laughs rather than being irritable as previously. He continues to have concerns about a spot on his arm that may be cancer but these are more somatic concerns rather than paranoid. Patient denies SI, HI, or AVH today. Nursing staff report patient can be argumentative but this is mainly in regards to the dosing of his medications. I have asked not to discuss this with him as it has already been determined he lacks capacity to make his own medical decisions and I don't want him to refuse a medication because of the dose. Patient slept well overnight. VSS. Patient is eating well. Psychotropic PRNs required in the past 24 hours: none. Start Time: 11:00 Stop Time: 11:20 Mental Status Exam Vitals: Last Vital Signs Temp 97.2 F 07/21/17 16:00 Pulse 59 L 07/21/17 16:00 Resp 18 07/21/17 16:00 BP 142/80 H 07/21/17 16:00 Pulse Ox 100 07/21/17 16:00 Height: 1.73 m Weight: 83.2 kg - Mental Status Exam Muscle Strength/Tone: Normal Dressing: Casual Grooming: Fair Attitude: Uncooperative, Suspicious (improving), Argumentative (improving) Motor Activity: Normal Eye Contact: Poor Speech: Normal Volume: Normal Rhythm: Appropriate Rhythm Orientation: Disoriented to situation, Oriented to person, Oriented to place, Oriented to time Mood: Neutral (more relaxed, brighter affect than previously seen) Rate of Thoughts: Delayed Thought Organization: [place] Associations: Intact Abstract Reasoning: Impaired, concrete Thought Content: Delusions (somatic), Paranoia (decreasing), Somatic Concerns Perception/Psychotic: Psychotic (delusions only) Language: Naming Intact Fund of Knowledge: Other (decreased from baseline, SLUMS upon admission) Memory: Poor-recent Suicidal Ideation: Denies Homicidal Ideation: Denies Insight: Impaired Judgement: Impaired Impulse Control: Other (Limited though improving) - Laboratory Result Diagrams: 07/12/17 12:43 07/20/17 07:24 Assessment and Plan (1) Psychosis Qualifiers: Psychosis type: schizoaffective disorder Schizoaffective disorder type: bipolar Qualified Code(s): F25.0 - Schizoaffective disorder, bipolar type Current visit: Yes Status: Acute (2) Major neurocognitive disorder Current visit: Yes Status: Chronic (3) Hypertension Current visit: Yes Status: Acute Patient improving with compliance and dosing of Zyprexa. Continue current care and continue to ensure adherence as I believe he will start refusing medication if given the opportunity. Hospital Course Summary Disclaimer: The visit summary below is not to be considered part of the above Progress Note. Hospital Course: 07/14/17 Psych: Will discuss the following plan with guardian: Discontinue Trileptal. Plan to taper pramipexole in the event it could be exacerbating psychosis; will decrease to 1mg PO BID for the time being and then 1mg daily the following day. Will also like to restart Zyprexa 5mg PO daily at HS; if patient refuses he will be given Haldol 1mg IM. Will monitor mood, behavior, movement and response to treatment. 07/15/17 Psych: Continue current care; patient received injection in place of scheduled Zyprexa yesterday evening. Seems to be somewhat helpful though still quite symptomatic. Will see if patient will adhere with oral medication tonight. If not, may consider increasing dose of PRN IM Haldol if he refuses. 07/16/17 Pt remains paranoid and sexually inappropriate at times. Will decrease Pramipexole to 0.5mg PO BID and Increase Zyprexa to 10mg PO QHS 07/17/17 Paranoia improved. Continue current care. 07/18/17 Psych: Continue current care; monitor response to increased Zyprexa. May need additional medication to target sleep. Have decreased pramipexole to 0.25mg PO BID. 07/19/17 Psych: Have requested nursing to do mouth checks to ensure adherence with Zyprexa. Need to watch closely as patient has attempted to hide multiple items (a butter knife, manicure set) and quite irritable with peers. 07/20/17 Psych: Reinforced need to watch patient closely when it comes to medication adherence as well as taking objects into room. Plan to search his room to ensure nothing dangerous in there. If this continues, will only allow patient to wear hospital gown. If there is questions as to med adherence with Zyprexa, nursing staff to give IM Haldol or call me for further instruction. Will decrease pramipexole to once daily and then plan to discontinue. 07/21/17 Psych: Patient improving with compliance and dosing of Zyprexa. Continue current care and continue to ensure adherence as I believe he will start refusing medication if given the opportunity.
[2017-07-22] MEDS: OLANZapine ODT 5 MG TABLET PO SCH ×2 (08:24→20:20)
[2017-07-22] MEDS: LISINOPRIL 5 MG TABLET PO SCH (08:24)
[2017-07-22] MEDS: PRAMIPEXOLE 0.25 MG TABLET PO SCH (08:24)
--- NOTE | 2017-07-22 15:22 | Progress Note ---
Progress Note: Rajesh is seen today while ambulating in his room ,He is alert and pleasant. Eyes having any pain or feeling short of breath. He reports that he is eating good and denies having any GI concerns. Chart Reviewed.
--- NOTE | 2017-07-22 19:58 | Neuropsych Progress Note ---
[place] Subjective Date: 07/22/17 - Sujective/Severity of Illness Medications: Acetaminophen (Tylenol) 650 mg PO Q4H PRN PRN Reason: Pain Al Hydroxide/Mg Hydroxide (Maalox Plus) 15 ml PO Q6H PRN PRN Reason: PRN orders Guaifenesin (Mucinex) 200 mg PO TID PRN PRN Reason: Cough /Congestion Last Admin: 07/14/17 01:55 Dose: 200 mg Haloperidol (Haldol) 0.5 mg PO Q6H PRN PRN Reason: Extreme agitation Haloperidol Lactate (Haldol) 0.5 mg IM Q6H PRN PRN Reason: Extreme agitation Haloperidol Lactate (Haldol) 2 mg IM BID PRN PRN Reason: See comments below Lisinopril (Prinivil) 5 mg PO DAILY [facility] Last Admin: 07/22/17 08:24 Dose: 5 mg Lorazepam (Ativan) 0.5 mg PO Q6H PRN PRN Reason: Extreme agitation Lorazepam (Ativan Inj) 0.5 mg IM Q6H PRN PRN Reason: Extreme agitation Lorazepam (Ativan Intensol) 0.5 mg SL Q6H PRN PRN Reason: alternative route Last Admin: 07/13/17 08:13 Dose: 0.5 mg Magnesium Hydroxide (Mom) 30 ml PO DAILY PRN PRN Reason: Constipation Olanzapine (Zyprexa Zydis) 5 mg PO BID [facility] Last Admin: 07/22/17 08:24 Dose: 5 mg Pramipexole Dihydrochloride (Mirapex) 0.25 mg PO WB [facility] Last Admin: 07/22/17 08:24 Dose: 0.25 mg Subjective: Patient seen and chart reviewed. Case discussed with treatment team. On interview, patient continues to focus on side effects (constipation, dizziness) from his medications though he states these are due to "every drug the FDA evaluates," not just specific to Zyprexa. He very much tries to dictate the dose of his medications but has a brighter affect overall. I am able to joke with him somewhat and he laughs rather than being irritable as previously. Patient tries to exert some level of control on the unit -- for example, was somehow able to cut bracelet so it stayed on but he could slide it off. He was also found with 3 screws in his room. He gets a lot of pleasure out of these things as he feels like he is pulling one over on us. He still tells me he doesn 't want to take Zyprexa and I don't believe he will be compliant at the [facility] yet. Patient denies SI, HI, or AVH today. Nursing staff report patient can be argumentative but this is mainly in regards to the dosing of his medications. I have asked not to discuss this with him as it has already been determined he lacks capacity to make his own medical decisions and I don't want him to refuse a medication because of the dose. His affect has been much more pleasant on the unit and he has not been hypersexual. Patient slept 8 hours overnight. VSS. Patient is eating well. Psychotropic PRNs required in the past 24 hours: none. Start Time: 13:00 Stop Time: 13:20 Mental Status Exam Vitals: Last Vital Signs Temp 97.2 F 07/22/17 16:00 Pulse 69 07/22/17 16:00 Resp 16 07/22/17 16:00 BP 120/78 07/22/17 16:00 Pulse Ox 98 07/22/17 16:00 Height: 1.73 m Weight: 83.2 kg - Mental Status Exam Muscle Strength/Tone: Normal Dressing: Casual Grooming: Fair Attitude: Uncooperative, Suspicious (improving), Argumentative (improving) Motor Activity: Normal Eye Contact: Poor Speech: Normal Volume: Normal Rhythm: Appropriate Rhythm Orientation: Disoriented to situation, Oriented to person, Oriented to place, Oriented to time Mood: Neutral Affect: Bright Rate of Thoughts: Delayed Thought Organization: [place] Associations: Intact Abstract Reasoning: Impaired, concrete Thought Content: Delusions (somatic), Paranoia (decreasing), Somatic Concerns Perception/Psychotic: Psychotic (delusions only) Current Hallucinations: Auditory (non-command) Language: Naming Intact Fund of Knowledge: Other (decreased from baseline, SLUMS upon admission) Memory: Poor-recent Suicidal Ideation: Denies Homicidal Ideation: Denies Insight: Impaired Judgement: Impaired Impulse Control: Fair - Laboratory Result Diagrams: 07/12/17 12:43 07/20/17 07:24 Assessment and Plan (1) Psychosis Qualifiers: Psychosis type: schizoaffective disorder Schizoaffective disorder type: bipolar Qualified Code(s): F25.0 - Schizoaffective disorder, bipolar type Current visit: Yes Status: Acute (2) Major neurocognitive disorder Current visit: Yes Status: Chronic (3) Hypertension Current visit: Yes Status: Acute Patient is improving well clinically on Zyprexa but continues to be argumentative about medications. I do not feel he'll be compliant at LTC facility right now if he were to discharge back. Plan to discuss care with LTC facility as patient doesn't have ability to refuse medications, request decrease , etc. and how we can ensure adherence. Will also search room after screws were found as patient can be quite resourceful. If this continues to happen, may require him to wear hospital gown. Hospital Course Summary Disclaimer: The visit summary below is not to be considered part of the above Progress Note. Hospital Course: 07/14/17 Psych: Will discuss the following plan with guardian: Discontinue Trileptal. Plan to taper pramipexole in the event it could be exacerbating psychosis; will decrease to 1mg PO BID for the time being and then 1mg daily the following day. Will also like to restart Zyprexa 5mg PO daily at HS; if patient refuses he will be given Haldol 1mg IM. Will monitor mood, behavior, movement and response to treatment. 07/15/17 Psych: Continue current care; patient received injection in place of scheduled Zyprexa yesterday evening. Seems to be somewhat helpful though still quite symptomatic. Will see if patient will adhere with oral medication tonight. If not, may consider increasing dose of PRN IM Haldol if he refuses. 07/16/17 Pt remains paranoid and sexually inappropriate at times. Will decrease Pramipexole to 0.5mg PO BID and Increase Zyprexa to 10mg PO QHS 07/17/17 Paranoia improved. Continue current care. 07/18/17 Psych: Continue current care; monitor response to increased Zyprexa. May need additional medication to target sleep. Have decreased pramipexole to 0.25mg PO BID. 07/19/17 Psych: Have requested nursing to do mouth checks to ensure adherence with Zyprexa. Need to watch closely as patient has attempted to hide multiple items (a butter knife, manicure set) and quite irritable with peers. 07/20/17 Psych: Reinforced need to watch patient closely when it comes to medication adherence as well as taking objects into room. Plan to search his room to ensure nothing dangerous in there. If this continues, will only allow patient to wear hospital gown. If there is questions as to med adherence with Zyprexa, nursing staff to give IM Haldol or call me for further instruction. Will decrease pramipexole to once daily and then plan to discontinue. 07/21/17 Psych: Patient improving with compliance and dosing of Zyprexa. Continue current care and continue to ensure adherence as I believe he will start refusing medication if given the opportunity. 07/22/17 Psych: Patient is improving well clinically on Zyprexa but continues to be argumentative about medications. I do not feel he'll be compliant at LTC facility right now if he were to discharge back. Plan to discuss care with LTC facility as patient doesn't have ability to refuse medications, request decrease , etc. and how we can ensure adherence. Will also search room after screws were found as patient can be quite resourceful. If this continues to happen, may require him to wear hospital gown.
[2017-07-23] MEDS: PRAMIPEXOLE 0.25 MG TABLET PO SCH (08:05)
[2017-07-23] MEDS: LISINOPRIL 5 MG TABLET PO SCH (08:05)
[2017-07-23] MEDS: OLANZapine ODT 5 MG TABLET PO SCH ×2 (08:05→20:00)
--- NOTE | 2017-07-23 11:50 | Neuropsych Progress Note ---
[place] Subjective Date: 07/23/17 - Sujective/Severity of Illness Medications: Acetaminophen (Tylenol) 650 mg PO Q4H PRN PRN Reason: Pain Al Hydroxide/Mg Hydroxide (Maalox Plus) 15 ml PO Q6H PRN PRN Reason: PRN orders Guaifenesin (Mucinex) 200 mg PO TID PRN PRN Reason: Cough /Congestion Last Admin: 07/14/17 01:55 Dose: 200 mg Haloperidol (Haldol) 0.5 mg PO Q6H PRN PRN Reason: Extreme agitation Haloperidol Lactate (Haldol) 0.5 mg IM Q6H PRN PRN Reason: Extreme agitation Haloperidol Lactate (Haldol) 2 mg IM BID PRN PRN Reason: See comments below Lisinopril (Prinivil) 5 mg PO DAILY [facility] Last Admin: 07/23/17 08:05 Dose: 5 mg Lorazepam (Ativan) 0.5 mg PO Q6H PRN PRN Reason: Extreme agitation Lorazepam (Ativan Inj) 0.5 mg IM Q6H PRN PRN Reason: Extreme agitation Lorazepam (Ativan Intensol) 0.5 mg SL Q6H PRN PRN Reason: alternative route Last Admin: 07/13/17 08:13 Dose: 0.5 mg Magnesium Hydroxide (Mom) 30 ml PO DAILY PRN PRN Reason: Constipation Olanzapine (Zyprexa Zydis) 5 mg PO BID [facility] Last Admin: 07/23/17 08:05 Dose: 5 mg Pramipexole Dihydrochloride (Mirapex) 0.25 mg PO WB [facility] Last Admin: 07/23/17 08:05 Dose: 0.25 mg Subjective: Patient seen and chart reviewed. Nursing reports pt is doing fairly well. Did not sleep well last night and can be irritable with staff at times. On face to face the pt states he is doing well. He reports his mood is fairly stable. He remains delusional but this appears improved. He requests to go home. Tolerating meds. Requests to stay on Mirapex as he feels it is helpful Start Time: 10:00 Stop Time: 10:15 Mental Status Exam Vitals: Last Vital Signs Temp 97.3 F 07/23/17 08:00 Pulse 93 07/23/17 08:00 Resp 18 07/23/17 08:00 BP 158/91 H 07/23/17 08:00 Pulse Ox 97 07/23/17 08:00 Height: 1.73 m Weight: 83.2 kg - Mental Status Exam Muscle Strength/Tone: Normal Dressing: Casual Grooming: Fair Attitude: Uncooperative, Suspicious (improving), Argumentative (improving) Motor Activity: Normal Eye Contact: Poor Speech: Normal Volume: Normal Rhythm: Appropriate Rhythm Orientation: Disoriented to situation, Oriented to person, Oriented to place, Oriented to time Mood: Neutral Rate of Thoughts: Delayed Thought Organization: [place] Associations: Intact Abstract Reasoning: Impaired, concrete Thought Content: Delusions (somatic), Paranoia (decreasing), Somatic Concerns Perception/Psychotic: Psychotic (delusions only) Current Hallucinations: Auditory (non-command) Language: Naming Intact Fund of Knowledge: Other (decreased from baseline, SLUMS upon admission) Memory: Poor-recent Suicidal Ideation: Denies Homicidal Ideation: Denies Insight: Impaired Judgement: Impaired Impulse Control: Fair - Laboratory Result Diagrams: 07/12/17 12:43 07/20/17 07:24 Assessment and Plan (1) Psychosis Qualifiers: Psychosis type: schizoaffective disorder Schizoaffective disorder type: bipolar Qualified Code(s): F25.0 - Schizoaffective disorder, bipolar type Current visit: Yes Status: Acute (2) Major neurocognitive disorder Current visit: Yes Status: Chronic (3) Hypertension Current visit: Yes Status: Acute Hospital Course Summary Disclaimer: The visit summary below is not to be considered part of the above Progress Note. Hospital Course: 07/14/17 Psych: Will discuss the following plan with guardian: Discontinue Trileptal. Plan to taper pramipexole in the event it could be exacerbating psychosis; will decrease to 1mg PO BID for the time being and then 1mg daily the following day. Will also like to restart Zyprexa 5mg PO daily at HS; if patient refuses he will be given Haldol 1mg IM. Will monitor mood, behavior, movement and response to treatment. 07/15/17 Psych: Continue current care; patient received injection in place of scheduled Zyprexa yesterday evening. Seems to be somewhat helpful though still quite symptomatic. Will see if patient will adhere with oral medication tonight. If not, may consider increasing dose of PRN IM Haldol if he refuses. 07/16/17 Pt remains paranoid and sexually inappropriate at times. Will decrease Pramipexole to 0.5mg PO BID and Increase Zyprexa to 10mg PO QHS 07/17/17 Paranoia improved. Continue current care. 07/18/17 Psych: Continue current care; monitor response to increased Zyprexa. May need additional medication to target sleep. Have decreased pramipexole to 0.25mg PO BID. 07/19/17 Psych: Have requested nursing to do mouth checks to ensure adherence with Zyprexa. Need to watch closely as patient has attempted to hide multiple items (a butter knife, manicure set) and quite irritable with peers. 07/20/17 Psych: Reinforced need to watch patient closely when it comes to medication adherence as well as taking objects into room. Plan to search his room to ensure nothing dangerous in there. If this continues, will only allow patient to wear hospital gown. If there is questions as to med adherence with Zyprexa, nursing staff to give IM Haldol or call me for further instruction. Will decrease pramipexole to once daily and then plan to discontinue. 07/21/17 Psych: Patient improving with compliance and dosing of Zyprexa. Continue current care and continue to ensure adherence as I believe he will start refusing medication if given the opportunity. 07/22/17 Psych: Patient is improving well clinically on Zyprexa but continues to be argumentative about medications. I do not feel he'll be compliant at LTC facility right now if he were to discharge back. Plan to discuss care with LTC facility as patient doesn't have ability to refuse medications, request decrease , etc. and how we can ensure adherence. Will also search room after screws were found as patient can be quite resourceful. If this continues to happen, may require him to wear hospital gown. 07/23/17 Some delusions but has been compliant with meds. Discussed with Dr. Slater about stopping Mirapex but at this time pt feels it is helpful and due to hx of nonadherence to meds we will continue at this time
[2017-07-24] MEDS: PRAMIPEXOLE 0.25 MG TABLET PO SCH (09:10)
[2017-07-24] MEDS: LISINOPRIL 5 MG TABLET PO SCH (09:11)
[2017-07-24] MEDS: OLANZapine ODT 5 MG TABLET PO SCH ×2 (09:11→19:59)
--- NOTE | 2017-07-24 11:03 | Neuropsych Progress Note ---
[place] Subjective Date: 07/24/17 - Sujective/Severity of Illness Medications: Acetaminophen (Tylenol) 650 mg PO Q4H PRN PRN Reason: Pain Al Hydroxide/Mg Hydroxide (Maalox Plus) 15 ml PO Q6H PRN PRN Reason: PRN orders Guaifenesin (Mucinex) 200 mg PO TID PRN PRN Reason: Cough /Congestion Last Admin: 07/14/17 01:55 Dose: 200 mg Haloperidol (Haldol) 0.5 mg PO Q6H PRN PRN Reason: Extreme agitation Haloperidol Lactate (Haldol) 0.5 mg IM Q6H PRN PRN Reason: Extreme agitation Haloperidol Lactate (Haldol) 2 mg IM BID PRN PRN Reason: See comments below Lisinopril (Prinivil) 5 mg PO DAILY [facility] Last Admin: 07/24/17 09:11 Dose: 5 mg Lorazepam (Ativan) 0.5 mg PO Q6H PRN PRN Reason: Extreme agitation Lorazepam (Ativan Inj) 0.5 mg IM Q6H PRN PRN Reason: Extreme agitation Lorazepam (Ativan Intensol) 0.5 mg SL Q6H PRN PRN Reason: alternative route Last Admin: 07/13/17 08:13 Dose: 0.5 mg Magnesium Hydroxide (Mom) 30 ml PO DAILY PRN PRN Reason: Constipation Olanzapine (Zyprexa Zydis) 5 mg PO BID [facility] Last Admin: 07/24/17 09:11 Dose: 5 mg Pramipexole Dihydrochloride (Mirapex) 0.25 mg PO WB [facility] Last Admin: 07/24/17 09:10 Dose: 0.25 mg Subjective: Patient seen and chart reviewed. Nursing reports pt is doing better. Slept well and has a good appetite. No behaviors noted. On face to face the pt states he is doing well. He reports his mood is stable. He is logical and appears less delusional. He denies any S/I or psychosis. Tolerating meds Start Time: 11:00 Stop Time: 11:15 Mental Status Exam Vitals: Last Vital Signs Temp 97.0 F 07/24/17 08:00 Pulse 86 07/24/17 08:00 Resp 16 07/24/17 08:00 BP 123/96 H 07/24/17 08:00 Pulse Ox 96 07/24/17 08:00 Height: 1.73 m Weight: 83.2 kg - Mental Status Exam Muscle Strength/Tone: Normal Dressing: Casual Grooming: Fair Attitude: Uncooperative, Suspicious (improving), Argumentative (improving) Motor Activity: Normal Eye Contact: Poor Speech: Normal Volume: Normal Rhythm: Appropriate Rhythm Orientation: Disoriented to situation, Oriented to person, Oriented to place, Oriented to time Mood: Neutral Rate of Thoughts: Delayed Thought Organization: [place] Associations: Intact Abstract Reasoning: Impaired, concrete Thought Content: Delusions (somatic), Paranoia (decreasing), Somatic Concerns Perception/Psychotic: Psychotic (delusions only) Current Hallucinations: Auditory (non-command) Language: Naming Intact Fund of Knowledge: Other (decreased from baseline, SLUMS upon admission) Memory: Poor-recent Suicidal Ideation: Denies Homicidal Ideation: Denies Insight: Impaired Judgement: Impaired Impulse Control: Fair - Laboratory Result Diagrams: 07/12/17 12:43 07/20/17 07:24 Assessment and Plan (1) Psychosis Qualifiers: Psychosis type: schizoaffective disorder Schizoaffective disorder type: bipolar Qualified Code(s): F25.0 - Schizoaffective disorder, bipolar type Current visit: Yes Status: Acute (2) Major neurocognitive disorder Current visit: Yes Status: Chronic (3) Hypertension Current visit: Yes Status: Acute Hospital Course Summary Disclaimer: The visit summary below is not to be considered part of the above Progress Note. Hospital Course: 07/14/17 Psych: Will discuss the following plan with guardian: Discontinue Trileptal. Plan to taper pramipexole in the event it could be exacerbating psychosis; will decrease to 1mg PO BID for the time being and then 1mg daily the following day. Will also like to restart Zyprexa 5mg PO daily at HS; if patient refuses he will be given Haldol 1mg IM. Will monitor mood, behavior, movement and response to treatment. 07/15/17 Psych: Continue current care; patient received injection in place of scheduled Zyprexa yesterday evening. Seems to be somewhat helpful though still quite symptomatic. Will see if patient will adhere with oral medication tonight. If not, may consider increasing dose of PRN IM Haldol if he refuses. 07/16/17 Pt remains paranoid and sexually inappropriate at times. Will decrease Pramipexole to 0.5mg PO BID and Increase Zyprexa to 10mg PO QHS 07/17/17 Paranoia improved. Continue current care. 07/18/17 Psych: Continue current care; monitor response to increased Zyprexa. May need additional medication to target sleep. Have decreased pramipexole to 0.25mg PO BID. 07/19/17 Psych: Have requested nursing to do mouth checks to ensure adherence with Zyprexa. Need to watch closely as patient has attempted to hide multiple items (a butter knife, manicure set) and quite irritable with peers. 07/20/17 Psych: Reinforced need to watch patient closely when it comes to medication adherence as well as taking objects into room. Plan to search his room to ensure nothing dangerous in there. If this continues, will only allow patient to wear hospital gown. If there is questions as to med adherence with Zyprexa, nursing staff to give IM Haldol or call me for further instruction. Will decrease pramipexole to once daily and then plan to discontinue. 07/21/17 Psych: Patient improving with compliance and dosing of Zyprexa. Continue current care and continue to ensure adherence as I believe he will start refusing medication if given the opportunity. 07/22/17 Psych: Patient is improving well clinically on Zyprexa but continues to be argumentative about medications. I do not feel he'll be compliant at LTC facility right now if he were to discharge back. Plan to discuss care with LTC facility as patient doesn't have ability to refuse medications, request decrease , etc. and how we can ensure adherence. Will also search room after screws were found as patient can be quite resourceful. If this continues to happen, may require him to wear hospital gown. 07/23/17 Some delusions but has been compliant with meds. Discussed with Dr. Slater about stopping Mirapex but at this time pt feels it is helpful and due to hx of nonadherence to meds we will continue at this time 07/24/17 Slowly improving. Continue current care
[2017-07-24] MEDS: POLYETHYL GLYCOL 3350 17gm PACKET PO SCH (16:00)
--- NOTE | 2017-07-24 16:25 | Progress Note ---
- Date 07/24/17 Subjective: Rajesh is seen today while sitting in the day room, putting a puzzle together. He reports that he is doing well and denies any complaints or concerns. He denies any chest pain, shortness of breath, abdominal pain, nausea, vomiting or dysuria. His appetite has been good. No documented BM though patient reports bowels are moving. Nurses deny any recent behaviors. Objective Vital signs: Temperature 97.0 F 07/24/17 08:00 Pulse Rate 86 07/24/17 08:00 Respiratory Rate 16 07/24/17 08:00 Blood Pressure 123/96 H 07/24/17 08:00 Pulse Oximetry 96 07/24/17 08:00 Height/Weight/BMI: Height 5 ft 8 in Weight 183 lb 6.793 oz Body Mass Index 27.6 Comments: sitting in day room - Constitutional Present: no acute distress, well nourished, well developed, cooperative - Routine HEENT Exam Head: Present: normocephalic, atraumatic Eye: Present: PERRL. Absent: conjunctival icterus ENT: Present: mucous membranes moist - Routine Respiratory Exam Present: CTA bilaterally. Absent: rales, rhonchi, stridor, wheezes, crackles - Routine Cardiovascular Exam Present: RRR, S1, S2 - Routine Abdominal Exam Present: soft, normoactive bowel sounds, non distended, non tender - Routine Extremities Exam Present: no edema, full ROM, pulses intact - Routine Back/Spine/Pelvis Exam Back/Spine: Present: full ROM. Absent: vertebral tenderness - Routine Musculoskeletal Exam Musculoskeletal: Present: no clubbing or cyanosis, moving extremities well - Routine Skin Exam Present: intact, dry, warm. Absent: jaundice - Routine Neurological Exam Present: alert, moving all extremities, normal speech. Absent: facial asymmetry - Routine Lymphatic Exam Lymphatic: Absent: lymphedema - Routine Psychiatric Exam Present: cooperative Results - Labs CBC & Chem 7: 07/12/17 12:43 07/20/17 07:24 Assessment and Plan (1) Paranoia Current visit: Yes Status: Acute Assessment and Plan: Assessment: Neuro-cognitive disorder with paranoia and elopement attempts Parkinson's HTN Bipolar Disorder Schizoaffective disorder Plan - 07/24/17 Overall, patient is doing well. No recent behaviors. Continue psychiatric care per Dr. Slater and team. Patient appears medically stable. Psychiatric notes reviewed. Will recheck labs in AM to monitor blood counts, electrolytes and renal function. Anticipate discharge in near future. : The patient was discussed with the PA. His vital signs are stable. Labs going to be repeated in the morning. I agree with the assessment and plan as stated above. Resuscitation Status: Full Code - Time spent with patient Time with patient PN: 25 minutes - Physician Narrative Physician: Nova Vazquez MD Narrative: Date: 07/24/17 Time: 1622 Hospital Course Summary Disclaimer: The visit summary below is not to be considered part of the above Progress Note. Hospital Course: 07/14/17 Psych: Will discuss the following plan with guardian: Discontinue Trileptal. Plan to taper pramipexole in the event it could be exacerbating psychosis; will decrease to 1mg PO BID for the time being and then 1mg daily the following day. Will also like to restart Zyprexa 5mg PO daily at HS; if patient refuses he will be given Haldol 1mg IM. Will monitor mood, behavior, movement and response to treatment. 07/15/17 Psych: Continue current care; patient received injection in place of scheduled Zyprexa yesterday evening. Seems to be somewhat helpful though still quite symptomatic. Will see if patient will adhere with oral medication tonight. If not, may consider increasing dose of PRN IM Haldol if he refuses. 07/16/17 Pt remains paranoid and sexually inappropriate at times. Will decrease Pramipexole to 0.5mg PO BID and Increase Zyprexa to 10mg PO QHS 07/17/17 Paranoia improved. Continue current care. 07/18/17 Psych: Continue current care; monitor response to increased Zyprexa. May need additional medication to target sleep. Have decreased pramipexole to 0.25mg PO BID. 07/19/17 Psych: Have requested nursing to do mouth checks to ensure adherence with Zyprexa. Need to watch closely as patient has attempted to hide multiple items (a butter knife, manicure set) and quite irritable with peers. 07/20/17 Psych: Reinforced need to watch patient closely when it comes to medication adherence as well as taking objects into room. Plan to search his room to ensure nothing dangerous in there. If this continues, will only allow patient to wear hospital gown. If there is questions as to med adherence with Zyprexa, nursing staff to give IM Haldol or call me for further instruction. Will decrease pramipexole to once daily and then plan to discontinue. 07/21/17 Psych: Patient improving with compliance and dosing of Zyprexa. Continue current care and continue to ensure adherence as I believe he will start refusing medication if given the opportunity. 07/22/17 Psych: Patient is improving well clinically on Zyprexa but continues to be argumentative about medications. I do not feel he'll be compliant at LTC facility right now if he were to discharge back. Plan to discuss care with LTC facility as patient doesn't have ability to refuse medications, request decrease , etc. and how we can ensure adherence. Will also search room after screws were found as patient can be quite resourceful. If this continues to happen, may require him to wear hospital gown. 07/23/17 Some delusions but has been compliant with meds. Discussed with Dr. Slater about stopping Mirapex but at this time pt feels it is helpful and due to hx of nonadherence to meds we will continue at this time 07/24/17 Slowly improving. Continue current care Plan - 07/24/17 Overall, patient is doing well. No recent behaviors. Continue psychiatric care per Dr. Slater and team. Patient appears medically stable. Psychiatric notes reviewed. Will recheck labs in AM to monitor blood counts, electrolytes and renal function. Anticipate discharge in near future.
[2017-07-24] MEDS: SENNA + DOCUSATE TABLET PO SCH (19:59)
[2017-07-25] MEDS: POLYETHYL GLYCOL 3350 17gm PACKET PO SCH (08:27)
[2017-07-25] MEDS: PRAMIPEXOLE 0.25 MG TABLET PO SCH (08:27)
[2017-07-25] MEDS: LISINOPRIL 5 MG TABLET PO SCH (08:27)
[2017-07-25] MEDS: OLANZapine ODT 5 MG TABLET PO SCH ×2 (08:28→20:24)
[2017-07-25] MEDS: SENNA + DOCUSATE TABLET PO SCH ×2 (08:29→20:24)
--- NOTE | 2017-07-25 15:52 | Neuropsych Progress Note ---
[facility] Subjective Date: 07/25/17 - Sujective/Severity of Illness Medications: Acetaminophen (Tylenol) 650 mg PO Q4H PRN PRN Reason: Pain Al Hydroxide/Mg Hydroxide (Maalox Plus) 15 ml PO Q6H PRN PRN Reason: PRN orders Guaifenesin (Mucinex) 200 mg PO TID PRN PRN Reason: Cough /Congestion Last Admin: 07/14/17 01:55 Dose: 200 mg Haloperidol (Haldol) 0.5 mg PO Q6H PRN PRN Reason: Extreme agitation Haloperidol Lactate (Haldol) 0.5 mg IM Q6H PRN PRN Reason: Extreme agitation Haloperidol Lactate (Haldol) 2 mg IM BID PRN PRN Reason: See comments below Lisinopril (Prinivil) 5 mg PO DAILY [facility] Last Admin: 07/25/17 08:27 Dose: 5 mg Lorazepam (Ativan) 0.5 mg PO Q6H PRN PRN Reason: Extreme agitation Lorazepam (Ativan Inj) 0.5 mg IM Q6H PRN PRN Reason: Extreme agitation Lorazepam (Ativan Intensol) 0.5 mg SL Q6H PRN PRN Reason: alternative route Last Admin: 07/13/17 08:13 Dose: 0.5 mg Magnesium Hydroxide (Mom) 30 ml PO DAILY PRN PRN Reason: Constipation Olanzapine (Zyprexa Zydis) 5 mg PO BID [facility] Last Admin: 07/25/17 08:28 Dose: 5 mg Polyethylene Glycol (Miralax) 17 gm PO DAILY [facility] Last Admin: 07/25/17 08:27 Dose: 17 gm Pramipexole Dihydrochloride (Mirapex) 0.25 mg PO WB [facility] Last Admin: 07/25/17 08:27 Dose: 0.25 mg Senna/Docusate Sodium (Senna Plus Tablet) 1 tab PO BID [facility] Last Admin: 07/25/17 08:29 Dose: Not Given Subjective: Patient seen and chart reviewed. Case discussed with treatment team. On interview, patient is pleasant and reports his mood is good. He reports feeling well physically today. He says he is only willing to take Zyprexa 2.5mg BID (though he has been taking more and knew it previously -- I believe this is due to MNCD; will continue a total of 10mg daily and LTC facility has stated they will attempt not to discuss this with him.) Patient denies any SI, HI or AVH. Patient denies any adverse side effects related to psychotropic medications. Nursing staff report patient has been pleasant and cooperative, with no apparent delusions or hypersexuality. Patient has been adherent with medications though can be argumentative with doctor about dosing, etc. It has already been determined patient does not have capacity to make these decisions. Patient slept 6.5 hours overnight. VSS. Patient is eating well. Psychotropic PRNs required in the past 24 hours: none. Start Time: 12:40 Stop Time: 13:00 Mental Status Exam Vitals: Last Vital Signs Temp 97.0 F 07/25/17 08:00 Pulse 86 07/25/17 08:00 Resp 16 07/25/17 08:00 BP 130/77 07/25/17 08:00 Pulse Ox 96 07/25/17 08:00 Height: 1.73 m Weight: 83.2 kg - Mental Status Exam Muscle Strength/Tone: Normal Dressing: Casual Grooming: Fair Attitude: Argumentative (improving) Motor Activity: Normal Eye Contact: Good Speech: Normal Volume: Normal Rhythm: Appropriate Rhythm Orientation: Oriented to person, Oriented to place, Oriented to time Mood: Euthymic Affect: Relaxed Rate of Thoughts: Delayed Thought Organization: [place] Associations: Intact Abstract Reasoning: Impaired, concrete Thought Content: Delusions (somatic), Somatic Concerns Perception/Psychotic: Hx psychosis, not current Language: Naming Intact Fund of Knowledge: Other (decreased from baseline, SLUMS upon admission) Memory: Poor-recent Suicidal Ideation: Denies Homicidal Ideation: Denies Insight: Impaired Judgement: Impaired Impulse Control: Fair - Laboratory Result Diagrams: 07/25/17 08:42 07/25/17 08:42 Laboratory Results - last 24 hr 07/25/17 07/25/17 08:42 08:42 WBC 6.6 RBC 5.73 Hgb 16.7 Hct 49.3 MCV 86.0 MCH 29.1 MCHC 33.9 RDW Std Deviation 46.7 Plt Count 218 MPV 10.2 Immature Gran % (Auto) 0.2 Neut % (Auto) 61.8 Lymph % (Auto) 28.9 [place] % (Auto) 6.5 Eos % (Auto) 2.0 Baso % (Auto) 0.6 Neut # (Auto) 4.1 Lymph # (Auto) 1.9 [place] # (Auto) 0.4 Eos # (Auto) 0.1 Baso # (Auto) 0.0 Abs Immat Gran (auto) 0.01 Turbidity < 20 Sodium 143 Potassium 4.3 Chloride 109 H Carbon Dioxide 23 Anion Gap 11 BUN 22.0 H Creatinine 1.1 GFR Calculation 66 BUN/Creatinine Ratio 20 Glucose 88 Calculated Osmolality 277 Calcium 10.0 Icterus Index < 2 Specimen Hemolysis < 15 Assessment and Plan (1) Psychosis Qualifiers: Psychosis type: schizoaffective disorder Schizoaffective disorder type: bipolar Qualified Code(s): F25.0 - Schizoaffective disorder, bipolar type Current visit: Yes Status: Acute (2) Major neurocognitive disorder Problem details: Alzheimer'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 Patient will follow up with different outpatient psychiatrist after discharge. Consider discontinuing pramipexole though it has been significantly decreased at this point. SW to begin working on discharge arrangements. Hospital Course Summary Disclaimer: The visit summary below is not to be considered part of the above Progress Note. Hospital Course: 07/14/17 Psych: Will discuss the following plan with guardian: Discontinue Trileptal. Plan to taper pramipexole in the event it could be exacerbating psychosis; will decrease to 1mg PO BID for the time being and then 1mg daily the following day. Will also like to restart Zyprexa 5mg PO daily at HS; if patient refuses he will be given Haldol 1mg IM. Will monitor mood, behavior, movement and response to treatment. 07/15/17 Psych: Continue current care; patient received injection in place of scheduled Zyprexa yesterday evening. Seems to be somewhat helpful though still quite symptomatic. Will see if patient will adhere with oral medication tonight. If not, may consider increasing dose of PRN IM Haldol if he refuses. 07/16/17 Pt remains paranoid and sexually inappropriate at times. Will decrease Pramipexole to 0.5mg PO BID and Increase Zyprexa to 10mg PO QHS 07/17/17 Paranoia improved. Continue current care. 07/18/17 Psych: Continue current care; monitor response to increased Zyprexa. May need additional medication to target sleep. Have decreased pramipexole to 0.25mg PO BID. 07/19/17 Psych: Have requested nursing to do mouth checks to ensure adherence with Zyprexa. Need to watch closely as patient has attempted to hide multiple items (a butter knife, manicure set) and quite irritable with peers. 07/20/17 Psych: Reinforced need to watch patient closely when it comes to medication adherence as well as taking objects into room. Plan to search his room to ensure nothing dangerous in there. If this continues, will only allow patient to wear hospital gown. If there is questions as to med adherence with Zyprexa, nursing staff to give IM Haldol or call me for further instruction. Will decrease pramipexole to once daily and then plan to discontinue. 07/21/17 Psych: Patient improving with compliance and dosing of Zyprexa. Continue current care and continue to ensure adherence as I believe he will start refusing medication if given the opportunity. 07/22/17 Psych: Patient is improving well clinically on Zyprexa but continues to be argumentative about medications. I do not feel he'll be compliant at LTC facility right now if he were to discharge back. Plan to discuss care with LTC facility as patient doesn't have ability to refuse medications, request decrease , etc. and how we can ensure adherence. Will also search room after screws were found as patient can be quite resourceful. If this continues to happen, may require him to wear hospital gown. 07/23/17 Some delusions but has been compliant with meds. Discussed with Dr. Slater about stopping Mirapex but at this time pt feels it is helpful and due to hx of nonadherence to meds we will continue at this time 07/24/17 Slowly improving. Continue current care Plan - 07/24/17 Overall, patient is doing well. No recent behaviors. Continue psychiatric care per Dr. Slater and team. Patient appears medically stable. Psychiatric notes reviewed. Will recheck labs in AM to monitor blood counts, electrolytes and renal function. Anticipate discharge in near future. Psych 07/25/17: Continue current care; patient does not have capacity to make own decisions in regards to treatment. Patient will follow up with different outpatient psychiatrist after discharge. Consider discontinuing pramipexole though it has been significantly decreased at this point. SW to begin working on discharge arrangements.
[2017-07-26] MEDS: LISINOPRIL 5 MG TABLET PO SCH (08:48)
[2017-07-26] MEDS: SENNA + DOCUSATE TABLET PO SCH ×2 (08:54→20:49)
[2017-07-26] MEDS: OLANZapine ODT 5 MG TABLET PO SCH ×2 (08:54→20:49)
[2017-07-26] MEDS: PRAMIPEXOLE 0.25 MG TABLET PO SCH (08:54)
[2017-07-26] MEDS: POLYETHYL GLYCOL 3350 17gm PACKET PO SCH (08:54)
--- NOTE | 2017-07-26 14:39 | Neuropsych Progress Note ---
[facility] Subjective Date: 07/26/17 - Sujective/Severity of Illness Medications: Acetaminophen (Tylenol) 650 mg PO Q4H PRN PRN Reason: Pain Al Hydroxide/Mg Hydroxide (Maalox Plus) 15 ml PO Q6H PRN PRN Reason: PRN orders Guaifenesin (Mucinex) 200 mg PO TID PRN PRN Reason: Cough /Congestion Last Admin: 07/14/17 01:55 Dose: 200 mg Haloperidol (Haldol) 0.5 mg PO Q6H PRN PRN Reason: Extreme agitation Haloperidol Lactate (Haldol) 0.5 mg IM Q6H PRN PRN Reason: Extreme agitation Haloperidol Lactate (Haldol) 2 mg IM BID PRN PRN Reason: See comments below Lisinopril (Prinivil) 5 mg PO DAILY [facility] Last Admin: 07/26/17 08:48 Dose: Not Given Lorazepam (Ativan) 0.5 mg PO Q6H PRN PRN Reason: Extreme agitation Lorazepam (Ativan Inj) 0.5 mg IM Q6H PRN PRN Reason: Extreme agitation Lorazepam (Ativan Intensol) 0.5 mg SL Q6H PRN PRN Reason: alternative route Last Admin: 07/13/17 08:13 Dose: 0.5 mg Magnesium Hydroxide (Mom) 30 ml PO DAILY PRN PRN Reason: Constipation Olanzapine (Zyprexa Zydis) 5 mg PO BID [facility] Last Admin: 07/26/17 08:54 Dose: 5 mg Polyethylene Glycol (Miralax) 17 gm PO DAILY [facility] Last Admin: 07/26/17 08:54 Dose: 17 gm Pramipexole Dihydrochloride (Mirapex) 0.25 mg PO WB [facility] Last Admin: 07/26/17 08:54 Dose: 0.25 mg Senna/Docusate Sodium (Senna Plus Tablet) 1 tab PO BID [facility] Last Admin: 07/26/17 08:54 Dose: 1 tab Subjective: Patient seen and chart reviewed. Case discussed with treatment team. On interview, patient is pleasant and reports his mood is good. He reports feeling well physically today. He continues to be resistant to higher Zyprexa dose but doesn't know the dose he is actually taking. I believe he does not have capacity to make his own medical decisions due to MNCD; will continue a total of 10mg daily and LTC facility has stated they will attempt not to discuss this with him.) He is in agreement with discontinuing pramipexole. Patient denies any SI, HI or AVH. Patient denies any adverse side effects related to psychotropic medications. Nursing staff report patient has been pleasant and cooperative, with no apparent delusions or hypersexuality. Patient has been adherent with medications though can be argumentative with doctor about dosing, etc. It has already been determined patient does not have capacity to make these decisions. Patient slept 7.75 hours overnight. VSS. Patient is eating well. Psychotropic PRNs required in the past 24 hours: none. Start Time: 11:20 Stop Time: 11:40 Mental Status Exam Vitals: Last Vital Signs Temp 97.9 F 07/26/17 08:00 Pulse 85 07/26/17 08:00 Resp 16 07/26/17 08:00 BP 113/72 07/26/17 08:00 Pulse Ox 99 07/26/17 08:00 Height: 1.73 m Weight: 83.2 kg - Mental Status Exam Muscle Strength/Tone: Normal Dressing: Casual Grooming: Fair Attitude: Cooperative (mostly ) Motor Activity: Normal Eye Contact: Good Speech: Normal Volume: Normal Rhythm: Appropriate Rhythm Orientation: Oriented to person, Oriented to place, Oriented to time Mood: Euthymic Affect: Relaxed Rate of Thoughts: Delayed Thought Organization: [place] Associations: Intact Abstract Reasoning: Impaired, concrete Thought Content: Normal Perception/Psychotic: Hx psychosis, not current Language: Naming Intact Fund of Knowledge: Other (decreased from baseline, SLUMS upon admission) Memory: Poor-recent Suicidal Ideation: Denies Homicidal Ideation: Denies Insight: Impaired Judgement: Impaired Impulse Control: Fair - Laboratory Result Diagrams: 07/25/17 08:42 07/25/17 08:42 Assessment and Plan (1) Psychosis Qualifiers: Psychosis type: schizoaffective disorder Schizoaffective disorder type: bipolar Qualified Code(s): F25.0 - Schizoaffective disorder, bipolar type Current visit: Yes Status: Acute (2) Major neurocognitive disorder Problem details: Alzheimer's type likely, moderate Current visit: Yes Status : Chronic (3) Hypertension Current visit: Yes Status: Acute Will discontinue pramipexole. Continue current care otherwise; will ask SW to finalize discharge arrangements with facility. Dr. Murphy to care for patient after discharge. Have asked facility not to discuss dosing of medication with patient. Hospital Course Summary Disclaimer: The visit summary below is not to be considered part of the above Progress Note. Hospital Course: 07/14/17 Psych: Will discuss the following plan with guardian: Discontinue Trileptal. Plan to taper pramipexole in the event it could be exacerbating psychosis; will decrease to 1mg PO BID for the time being and then 1mg daily the following day. Will also like to restart Zyprexa 5mg PO daily at HS; if patient refuses he will be given Haldol 1mg IM. Will monitor mood, behavior, movement and response to treatment. 07/15/17 Psych: Continue current care; patient received injection in place of scheduled Zyprexa yesterday evening. Seems to be somewhat helpful though still quite symptomatic. Will see if patient will adhere with oral medication tonight. If not, may consider increasing dose of PRN IM Haldol if he refuses. 07/16/17 Pt remains paranoid and sexually inappropriate at times. Will decrease Pramipexole to 0.5mg PO BID and Increase Zyprexa to 10mg PO QHS 07/17/17 Paranoia improved. Continue current care. 07/18/17 Psych: Continue current care; monitor response to increased Zyprexa. May need additional medication to target sleep. Have decreased pramipexole to 0.25mg PO BID. 07/19/17 Psych: Have requested nursing to do mouth checks to ensure adherence with Zyprexa. Need to watch closely as patient has attempted to hide multiple items (a butter knife, manicure set) and quite irritable with peers. 07/20/17 Psych: Reinforced need to watch patient closely when it comes to medication adherence as well as taking objects into room. Plan to search his room to ensure nothing dangerous in there. If this continues, will only allow patient to wear hospital gown. If there is questions as to med adherence with Zyprexa, nursing staff to give IM Haldol or call me for further instruction. Will decrease pramipexole to once daily and then plan to discontinue. 07/21/17 Psych: Patient improving with compliance and dosing of Zyprexa. Continue current care and continue to ensure adherence as I believe he will start refusing medication if given the opportunity. 07/22/17 Psych: Patient is improving well clinically on Zyprexa but continues to be argumentative about medications. I do not feel he'll be compliant at LTC facility right now if he were to discharge back. Plan to discuss care with LTC facility as patient doesn't have ability to refuse medications, request decrease , etc. and how we can ensure adherence. Will also search room after screws were found as patient can be quite resourceful. If this continues to happen, may require him to wear hospital gown. 07/23/17 Some delusions but has been compliant with meds. Discussed with Dr. Slater about stopping Mirapex but at this time pt feels it is helpful and due to hx of nonadherence to meds we will continue at this time 07/24/17 Slowly improving. Continue current care Plan - 07/24/17 Overall, patient is doing well. No recent behaviors. Continue psychiatric care per Dr. Slater and team. Patient appears medically stable. Psychiatric notes reviewed. Will recheck labs in AM to monitor blood counts, electrolytes and renal function. Anticipate discharge in near future. Psych 07/25/17: Continue current care; patient does not have capacity to make own decisions in regards to treatment. Patient will follow up with different outpatient psychiatrist after discharge. Consider discontinuing pramipexole though it has been significantly decreased at this point. SW to begin working on discharge arrangements. Psych 07/26/17: Will discontinue pramipexole. Continue current care otherwise; will ask SW to finalize discharge arrangements with facility. Dr. Murphy to care for patient after discharge. Have asked facility not to discuss dosing of medication with patient.
--- NOTE | 2017-07-26 16:05 | Extended Care Facility Orders ---
Admission Orders Admit to:: [facility] Allergies/Adverse Reactions: Allergies Penicillins Allergy (Verified 07/12/17 12:26) Sulfa (Sulfonamide Antibiotics) Allergy (Verified 07/12/17 12:26) Admitting Diagnosis: Dementia with behavioral disturbances Admitting Physician: Yasemin Slater MD Attending Physician: Yasemin Slater MD Code Status: Full Code Rehab Potential: fair Rehab Prognosis: fair Diet: 07/12/17 Dinner Regular Diet [DIET] Diet Modifications: Wound/Incision Care: N/A May use Facility Protocol or Standing Orders: Yes May have flu vaccine: Yes Evaluations/Treatment: Psychiatric (per Dr. Murphy), as needed Residential Certification: I certify that SNF services are required to be given on an Inpatient basis because of the patients need for halfway care on a continuing basis for the condition(s) for which he/she received inpatient hospital services prior to his/her transfer to the SNF. SNF inpatient care is necessary for the following reasons Indication for Residential: Not Applicable - Additional Information In Event of Arrest: Start CPR,call 911,send patient to the ER Resident is Aware of Diagnosis: No (Patient does not believe diagnosis) Referrals: Nestor Law [Family Provider] - (Dr. Reilly Law on 08/05/17 at 10:00 am for Hosp. follow-up. [facility] [address] [place] [address]) Raj Murphy MD [Physician] - (Dr. Julien Murphy on 08/04/17 at 1:20 pm for Mental Health follow-up. [phone] [facility] [address] [address]) Additional Orders: Do not change patients medications without speaking to his guardian as he does not have capacity to make his own medical decisions.
[2017-07-27] MEDS: LISINOPRIL 5 MG TABLET PO SCH ×2 (07:45→10:36)
[2017-07-27] MEDS: SENNA + DOCUSATE TABLET PO SCH ×2 (07:46→10:36)
[2017-07-27] MEDS: OLANZapine ODT 5 MG TABLET PO SCH ×2 (07:46→10:36)
[2017-07-27] MEDS: POLYETHYL GLYCOL 3350 17gm PACKET PO SCH ×2 (07:46→10:36)
[2017-07-27 07:50] VITALS: BP 140/82; PULSE 73; RESP 18; TEMP 97.4; O2SAT 99
== END 2017-07-27 12:05 | disposition home or self-care (01) | DRG 885 ==
LOC: ED 11:56 → GEN 13:49
PROVIDERS: ADMIT Psychiatry & Neurology Psychiatry; ATTEND Psychiatry & Neurology Psychiatry